=== PATIENT | male | born 1935 | race Caucasian/White ===

== ENCOUNTER 2019-03-27 12:27 | Emergency (ER) | payer MEDICARE, SELFPAY ==
[2019-03-27 12:32] VITALS: BP 114/62; PULSE 70; RESP 18; TEMP 37.2; O2SAT 94; BMI 29.5
--- NOTE | 2019-03-27 12:42 | ED_ITS ---
Entered by Apryl Gutierrez, acting as scribe for HPI - SOB/Dyspnea General: Chief Complaint: Shortness of Breath/Dyspnea Stated Complaint: r knee pain, congestion Time Seen by Provider: 03/27/19 12:43 Source: patient and family Mode of arrival: ambulatory History of Present Illness: HPI Narrative: 83 yo male presents with shortness of breath. per spouse the pt is suppose to wear home O2 but chooses not to wear it.pt has had a cough. pt states movement and cough makes this worse and nothing makes it better. MD elicited complaint: shortness of breath and cough Onset (ago): day(s) Timing: progressively worsening (when not wearing home O2) Severity: moderate Exacerbating factors: other (not wearing his home oxygen) Relieving factors: oxygen Known history of: COPD and congestive heart failure Associated symptoms: Reports cough and other (R knee pain) Treatment prior to arrival: none PFSH ED PFSH: Statuses (acute, chronic, etc) shown below reflect problem list status as previously entered and may not be historically accurate Medical History (Updated 03/27/19 @ 14:05 by Shanon Pascual) Arrhythmia (Acute) Atrial fibrillation (Acute) CHF (congestive heart failure) (Acute) Cholecystectomy planned (Acute) COPD (chronic obstructive pulmonary disease) (Acute) CVA (cerebral vascular accident) (Acute) HTN (hypertension) (Acute) Surgical History (Updated 03/27/19 @ 13:16 by Apryl Gutierrez) History of cholecystectomy (Acute) Social History Smoking and tobacco status: former smoker Course Vital Signs: Vital signs: Vital Signs Temperature 98.9 F 03/27/19 12:32 Pulse Rate 70 03/27/19 13:48 Respiratory Rate 16 03/27/19 13:48 Blood Pressure 110/74 03/27/19 13:13 Pulse Oximetry 96 03/27/19 13:48 MDM - SOB/Dyspnea MDM Narrative: Medical decision making narrative: The patient's wheezing has resolved with DuoNeb here. He has medications for home. I will place him on prednisone and doxycycline. He and his agree to return should his symptoms change or worsen but he is feeling better and would like to be discharged. Lab Data: Labs: Lab Results 03/27/19 03/27/19 03/27/19 Range/Units 13:13 13:13 13:13 WBC 5.7 (4.0-10.0) 10^3/ uL RBC 3.80 L (4.1-5.3) 10^6/u L Hgb 12.8 (11.7-16.6) g/dL Hct 39.9 L (42.0-52.0) % MCV 105.0 H (80-94) fL MCH 33.7 (28.0-34.0) pg MCHC 32.1 (30.0-36.0) g/dL RDW 12.8 (12.1-15.1) % Plt Count 178 (130-400) 10^3/c mm MPV 10.1 (7.4-10.4) fL Neut % (Auto) 60.9 % Lymph % (Auto) 22.6 % [place]clean % (Auto) 11.4 % Eos % (Auto) 4.2 % Baso % (Auto) 0.5 % Neut # (Auto) 3.5 (1.8-7.7) 10^3/u L Lymph # (Auto) 1.3 (0.8-4.8) 10^3/u L Mclean # (Auto) 0.7 (0.2-0.9) 10^3/u L Eos # (Auto) 0.2 (0.0-0.8) 10^3/u L Baso # (Auto) 0.0 (0.0-0.1) 10^3/u L Nucleated RBC % (a uto) 0 % Nucleated RBCs # 0.0 /100WBC Specimen Type Sample Site ABG pH (7.35-7.45) ABG pCO2 (35-45) mmHg ABG pO2 (80.0-100.0) mmH g ABG HCO3 (22-26) mmol/L ABG Base Excess (-2.0-2.0) mmol/ L Gian Test Hematocrit (42-52) % Hgb O2 Saturation (95-100) % O2 Liters/Min % FiO2 % Automotive Painter Helper ID Sodium 135 L (136-145) mmol/L Potassium 4.4 (3.5-5.1) mmol/L Chloride 96 L (98-107) mmol/L Carbon Dioxide 30 H (22-29) mmol/L Anion Gap 13.4 (5-19) BUN 11 (8-23) mg/dL Creatinine 1.1 (0.7-1.2) mg/dL Glucose 121 H (74-106) mg/dL Calcium 9.8 (8.8-10.2) mg/Dl Total Bilirubin 1.2 (0.15-1.2) mg/dL ALT 13 (0-41) U/L Alkaline Phosphata se 103 (40-130) IU/L Total Protein 6.8 (6.6-8.7) g/dL Albumin 4.4 (3.5-5.2) g/dL Globulin 2.4 (1.3-4.6) g/dL Influenza Type A A g Negative (Negative) POC Influenza B Ag Negative (Negative) 03/27/19 Range/Units 13:30 WBC (4.0-10.0) 10^3/ uL RBC (4.1-5.3) 10^6/u L Hgb (11.7-16.6) g/dL Hct (42.0-52.0) % MCV (80-94) fL MCH (28.0-34.0) pg MCHC (30.0-36.0) g/dL RDW (12.1-15.1) % Plt Count (130-400) 10^3/c mm MPV (7.4-10.4) fL Neut % (Auto) % Lymph % (Auto) % Mclean % (Auto) % Eos % (Auto) % Baso % (Auto) % Neut # (Auto) (1.8-7.7) 10^3/u L Lymph # (Auto) (0.8-4.8) 10^3/u L Mclean # (Auto) (0.2-0.9) 10^3/u L Eos # (Auto) (0.0-0.8) 10^3/u L Baso # (Auto) (0.0-0.1) 10^3/u L Nucleated RBC % (a uto) % Nucleated RBCs # /100WBC Specimen Type Arterial Sample Site Radial, right ABG pH 7.36 (7.35-7.45) ABG pCO2 53.8 H (35-45) mmHg ABG pO2 92.2 (80.0-100.0) mmH g ABG HCO3 30.0 H (22-26) mmol/L ABG Base Excess 3.3 H (-2.0-2.0) mmol/ L Gian Test Pos Hematocrit 38.8 L (42-52) % Hgb O2 Saturation 95.2 (95-100) % O2 Liters/Min 2.0 % FiO2 28.0 % Automotive Painter Helper ID amh Sodium (136-145) mmol/L Potassium (3.5-5.1) mmol/L Chloride (98-107) mmol/L Carbon Dioxide (22-29) mmol/L Anion Gap (5-19) BUN (8-23) mg/dL Creatinine (0.7-1.2) mg/dL Glucose (74-106) mg/dL Calcium (8.8-10.2) mg/Dl Total Bilirubin (0.15-1.2) mg/dL ALT (0-41) U/L Alkaline Phosphata se (40-130) IU/L Total Protein (6.6-8.7) g/dL Albumin (3.5-5.2) g/dL Globulin (1.3-4.6) g/dL Influenza Type A A g (Negative) POC Influenza B Ag (Negative) Imaging Data^: CXR: My impression: No acute cardiopulmonary findings. Discharge Plan Discharge Patient Disposition: Home, Self-Care Clinical Impression: Acute exacerbation of chronic obstructive airways disease Condition: Stable Prescriptions: New albuterol sulfate 90 mcg/actuation HFA aerosol inhaler 2 inh INHALATION Q6H PRN (Reason: shortness of breath or wheezing) Qty: 6.7 RF: 0 doxycycline hyclate 100 mg capsule 100 mg PO BID 10 Days Qty: 20 RF: 0 prednisone 10 mg tablet 20 mg PO BID 5 Days Qty: 20 RF: 0 No Action Pending RF: 0 Discharge Orders: Discharge Order (Routine); Ordered 03/27/19 Ordered By: Shanon Pascual Referrals: Chencho Howell MD [Family Provider] - Discharge Diet: Usual diet Discharge Activity: Increase activity as tolerated Patient Instructions: Chronic Obstructive Pulmonary Disease (ED) Activity Restrictions/Additional Instructions: Please return to the ER immediately for any of the signs or symptoms listed on your discharge instruction sheets, worsening/changing of your symptoms, you are not getting better as quickly as expected, or for ANY other cause or concerns. Coding Level of Care Code ED Sales Administration Manager for Chg Fwd The documentation recorded by the scribe, Gutierrez,Apryl Kiara, accurately reflects the service I personally performed and the decisions made by me, Shanon Pascual Mar 27, 2019 12:27
--- NOTE | 2019-03-27 12:44 | XRR_ITS ---
PROCEDURE INFORMATION: Exam: XR Left Foot Complete Exam date and time: 03/27/2019 12:50 PM Age: 83 years old Clinical indication: Patient HX: Possible gout/ C/O pain left foot for awhile. Swelling TECHNIQUE: Imaging protocol: XR Left foot. Views: 3 or more views. COMPARISON: No relevant prior studies available. FINDINGS: Bones/joints: There are mild degenerative changes scattered throughout the metatarsal phalangeal and interphalangeal joints. Scattered subchondral lucencies are scattered throughout the metatarsophalangeal and interphalangeal joints. Questionable erosive change is noted along the medial aspect of the 1st metatarsal head and along the lateral aspect of the 5th proximal phalanx. Small enthesophyte projects along the base of the 5th metatarsal. There is no evidence of acute displaced fracture. There are degenerative changes at the tibiotalar joint. Calcaneal enthesophytes are noted at the plantar and Achilles insertion points. Soft tissues: Unremarkable for technique. Vasculature: Atherosclerotic calcifications are noted. XR/XR foot LT min 3V* [id number] IMPRESSION: 1. Scattered degenerative change with questionable early erosive change along the 1st metatarsal head and distal aspect of the 5th proximal phalanx. Although nonspecific, findings can be associated with inflammatory arthropathies to include gout.
--- NOTE | 2019-03-27 12:44 | XRR_ITS ---
PROCEDURE INFORMATION: Exam: XR Right Knee Exam date and time: 03/27/2019 12:50 PM Age: 83 years old Clinical indication: Patient HX: C/O pain right knee for awhile TECHNIQUE: Imaging protocol: XR Right knee. Views: 3 views. COMPARISON: No relevant prior studies available. FINDINGS: Bones/joints: There is mild narrowing of the medial compartment. Small tricompartmental osteophytes are noted. There is no evidence of acute displaced fracture. Small patellar enthesophytes at the quadriceps and patellar tendon insertions are noted. There is a small knee joint effusion. Soft tissues: There is mild prepatellar soft tissue swelling. Vasculature: Vascular calcifications are noted. XR/XR knee RT 3V* [id number] IMPRESSION: 1. Mild tricompartmental degenerative change. 2. Mild prepatellar soft tissue swelling, which is of uncertain clinical significance and can be seen with prepatellar bursitis or contusion. 3. Small knee joint effusion.
[2019-03-27 12:52] VITALS: BP 133/70; PULSE 72; RESP 16; O2SAT 95; O2SAT 96
[2019-03-27 13:13] VITALS: BP 110/74; PULSE 80; RESP 16; O2SAT 95
[2019-03-27] MEDS: ipratropium-albuterol 3 mL Neb 9 ML INHALATION (13:21)
--- NOTE | 2019-03-27 13:22 | PC.NURSE ---
Xray performed at bedside. RT at bedside
[2019-03-27 13:23] VITALS: PULSE 76; RESP 16; O2SAT 96
--- NOTE | 2019-03-27 13:29 | XRR_ITS ---
PROCEDURE INFORMATION: Exam: XR Chest, 1 View Exam date and time: 03/27/2019 1:51 PM Age: 83 years old Clinical indication: Cough and other: Congestion; Prior surgery; Surgery date: 6+ months; Surgery type: Pacemaker TECHNIQUE: Imaging protocol: XR of the chest Views: 1 view. COMPARISON: CR Chest 2 views* [id number] 02/11/2019 9:52 AM FINDINGS: Tubes, catheters and devices: Dual lead right chest cardiac device is in place. The battery pack is more vertically oriented and there is slight variation of the battery pack itself suggesting interval removal and replacement. Both leads appear in unchanged position. Lungs: Unchanged calcified granuloma within the lateral left mid lung. There is no focal consolidation. Pleural space: No pleural effusion. No pneumothorax. Heart/Mediastinum: The heart remains enlarged and unchanged. Diaphragm: There is mild unchanged elevation of the right hemidiaphragm. Vasculature: Atherosclerotic calcifications are noted within the aortic arch. Bones/joints: There are degenerative changes of the spine and bilateral shoulders. XR/XR chest 1V portable [id number] IMPRESSION: 1. No acute cardiopulmonary process identified.
[2019-03-27 13:32] LABS: Basophils % 0.5 %; Eosinophils # 0.2 10^3/uL (0.0-0.8); Eosinophils % 4.2 %; Hematocrit 39.9 % (42.0-52.0); Hemoglobin 12.8 g/dL (11.7-16.6); Lymphocytes # 1.3 10^3/uL (0.8-4.8); Lymphocytes % 22.6 %; Mean Corpuscular HGB Conc 32.1 g/dL (30.0-36.0); Mean Corpuscular Hemoglobin 33.7 pg (28.0-34.0); Mean Platelet Volume 10.1 fL (7.4-10.4); Monocytes # 0.7 10^3/uL (0.2-0.9); Monocytes % 11.4 %; Neutrophils # 3.5 10^3/uL (1.8-7.7); Neutrophils % 60.9 %; Nucleated Red Blood Cells % 0 %; Platelet Count 178 10^3/cmm (130-400); Red Cell Distribution Width 12.8 % (12.1-15.1); White Blood Count 5.7 10^3/uL (4.0-10.0)
[2019-03-27 13:42] LABS: ABG PCO2 53.8 mmHg (35-45); ABG PH Result 7.36 (7.35-7.45); Arterial Blood Gas Hematocrit 38.8 % (42-52); Base Excess ABG 3.3 mmol/L (-2.0-2.0); Blood Gas Allen Test Pos; Blood Gas Operator Identificat amh; Blood Gas Sample Site Radial, right; Blood Gas Sample Type Arterial; HGB O2 Sat 95.2 % (95-100); PO2 ABG 92.2 mmHg (80.0-100.0)
[2019-03-27 13:48] VITALS: PULSE 70; RESP 16; O2SAT 96
[2019-03-27 13:58] LABS: Alanine Aminotransferase 13 U/L (0-41); Albumin Level 4.4 g/dL (3.5-5.2); Alkaline Phosphatase 103 IU/L (40-130); Anion Gap 13.4 (5-19); Blood Urea Nitrogen 11 mg/dL (8-23); Calcium 9.8 mg/Dl (8.8-10.2); Carbon Dioxide 30 mmol/L (22-29); Chloride 96 mmol/L (98-107); Globulin 2.4 g/dL (1.3-4.6); Glucose 121 mg/dL (74-106); Potassium 4.4 mmol/L (3.5-5.1); Sodium 135 mmol/L (136-145); Total Bilirubin 1.2 mg/dL (0.15-1.2); Total Protein 6.8 g/dL (6.6-8.7)
[2019-03-27 13:59] LABS: Influenza A by IFA Negative (Negative); Influenza B by IFA Negative (Negative)
[2019-03-27 14:16] VITALS: BP 125/57; PULSE 70; RESP 18; O2SAT 96
[2019-03-27 14:21] LABS: Aspartate Amino Transferase 31 U/L (0-40)
[2019-03-27] MEDS: predniSONE 20 mg Tablet 60 MG PO (14:22)
[2019-03-27] MEDS: doxycycline 100 mg Tablet 200 MG PO (14:22)
[2019-03-30 12:35] LABS: Carboxyhemoglobin 1.9 %THgb (0.4-20.1); Methemoglobin 0.7 % (0.4-1.5); Total Hemoglobin 12.7 g/dL (14-18)
[2019-03-31 08:36] LABS: Oxygen Device NC
== END 2019-03-27 14:25 | disposition home or self-care (01) ==
PROVIDERS: Emergency Provider Emergency Medicine; Family Provider Family Medicine
DX: J44.1 Chronic obstructive pulmonary disease with (acute) exacerbation (principal); Z87.891 Personal history of nicotine dependence; I48.91 Unspecified atrial fibrillation; I11.0 Hypertensive heart disease with heart failure; I50.9 Heart failure, unspecified; Z86.73 Personal history of transient ischemic attack (TIA), and cerebral infarction without residual deficits
CPT/HCPCS: 36415; 36600; 71045; 73562; 73630; 80053; 82805; 85025; 87040; 87804; 99282; J7512

== ENCOUNTER 2019-05-28 22:18 | Emergency (ER) | payer MEDICARE, SELFPAY ==
[2019-05-28 22:21] VITALS: BP 152/77; PULSE 75; RESP 20; TEMP 36.9; O2SAT 97; BMI 28.8
--- NOTE | 2019-05-28 22:24 | ED_ITS ---
Entered by Prisca Josue, acting as scribe for Ganga Vargas DO HPI - General Adult General: Chief complaint: General Medical Stated complaint: congestion, abd pain, blake Time Seen by Provider: 05/28/19 22:24 Source: patient, EMS and RN notes reviewed Mode of arrival: EMS Limitations: no limitations History of Present Illness: HPI narrative: 83 yo male presents to ED with complaints of abdominal pain, nausea, body aches (knees, elbows), congestion, chills (no fever) and a headache. The patient states I don't feel good . He denies vomiting and diarrhea. He said he simply can't think - my mind is a stinking blank . The patient denies difficulty breathing. MD complaint: abdominal pain, congestion, headache Onset (ago): hour(s) (today) Location: head, chest and abdomen Radiation: non-radiation Severity: moderate Quality: aching Pain Consistency: constant Relieving factors: none Exacerbating factors: none Associated symptoms: Reports chest pain, confusion, fevers/chills, headache(s), malaise, nausea and other (constipation); Deny dyspnea, rash, palpitations or vomiting Treatments prior to arrival: none Review of Systems Const: Reports: malaise Eyes: Denies: blurry vision ENMT: Denies: throat pain, painful swallowing or dental pain Card: Reports: chest pain; Denies: palpitations, edema, shortness of breath on exertion or shortness of breath when lying down Resp: Denies: shortness of breath or wheezing GI: Reports: nausea; Denies: abdominal pain, vomiting or vomiting blood : Reports: difficulty starting urination and change in urine stream Skin/Breast: Denies: rash Neuro: Reports: headache and confusion [facility] ED PFSH: Social History Smoking and tobacco status: former smoker Physical Exam Const: GENERAL APPEARANCE: well developed ORIENTATION/CONSCIOUSNESS: Yes oriented to person, Yes oriented to place and Yes oriented to time HENMT: COMMON NORMALS: normocephalic, external ears normal, external nose normal and moist oral mucous membranes (slightly dry) HEAD & SCALP: normocephalic; no scalp tenderness FACE & SINUS: normal facial exam NOSE: external nose normal and no nasal discharge EXTERNAL EAR: Yes external ears normal MOUTH: tongue normal TEETH & GINGIVA: no abnormal tooth and associated gingiva THROAT: posterior oropharynx normal; no peritonsillar mass Eye: COMMON NORMALS: PERRL, EOMs intact bilaterally and conjunctivae normal EYELID: eyelids normal CONJUNCTIVA: Yes conjunctivae normal PUPIL: Yes PERRL Neck/C-Spine: GENERAL: No tracheal deviation Chest: COMMONS NORMALS: inspection of chest normal CHEST: No tenderness Resp: COMMON NORMALS: clear to auscultation bilaterally EFFORT & INSPECTION: No tachypneic, No respiratory distress, No retractions, No uses accessory muscles and No tracheal deviation AUSCULTATION: clear to auscultation bilaterally, no rhonchi, no wheezes and lung sounds not diminished Cardio: COMMON NORMALS: regular rate and regular rhythm RATE: regular rate RHYTHM: regular rhythm HEART SOUNDS: no murmurs PERIPHERAL PULSES: radial pulses present GI: INSPECTION: No abdominal distension AUSCULTATION: No hyperactive bowel sounds and No hypoactive bowel sounds PALPATION: No guarding and No rigid PERCUSSION: no dullness to percussion and no tympanic to percussion Neuro: SENSORIUM/ORIENTATION: Yes oriented to person, Yes oriented to place and Yes oriented to time Psych: COMMON NORMALS: mental status grossly normal Skin: COMMON NORMALS: no rashes or lesions noted GENERAL SKIN EXAM: no rashes or lesions noted Course Vital Signs: Vital signs: Vital Signs Temperature 98.5 F 05/28/19 22:21 Pulse Rate 72 05/29/19 00:41 Respiratory Rate 15 05/29/19 00:41 Blood Pressure 131/66 05/29/19 00:41 Pulse Oximetry 95 05/29/19 00:41 MDM - General Adult [facility] Narrative: Medical decision making narrative: 83-year-old gentleman with epigastric discomfort, and nausea. He is not short of breath. Not overly having chest pain. His EKG is paced. His first troponin was minimally elevated. There is no fever, no leukocytosis, and his other laboratory is benign. GI cocktail resolved his symptoms. Patient was informed about his 2- hour troponin, but wished to go home with improvement in his symptoms. Lab Data: Labs: Lab Results 05/28/19 05/28/19 05/28/19 Range/Units 22:50 22:50 22:50 WBC 5.6 (4.0-10.0) 10^3/ uL RBC 4.15 (4.1-5.3) 10^6/u L Hgb 13.1 (11.7-16.6) g/dL Hct 41.0 L (42.0-52.0) % MCV 98.8 H (80-94) fL MCH 31.6 (28.0-34.0) pg MCHC 32.0 (30.0-36.0) g/dL RDW 12.3 (12.1-15.1) % Plt Count 150 (130-400) 10^3/c mm MPV 9.6 (7.4-10.4) fL Neut % (Auto) 54.6 % Lymph % (Auto) 26.7 % [place] % (Auto) 12.8 % Eos % (Auto) 5.0 % Baso % (Auto) 0.5 % Neut # (Auto) 3.0 (1.8-7.7) 10^3/u L Lymph # (Auto) 1.5 (0.8-4.8) 10^3/u L [place]verse # (Auto) 0.7 (0.2-0.9) 10^3/u L Eos # (Auto) 0.3 (0.0-0.8) 10^3/u L Baso # (Auto) 0.0 (0.0-0.1) 10^3/u L Nucleated RBC % (a uto) 0 % Nucleated RBCs # 0.0 /100WBC Sodium 135 L (136-145) mmol/L Potassium 4.3 (3.5-5.1) mmol/L Chloride 98 (98-107) mmol/L Carbon Dioxide 26 (22-29) mmol/L Anion Gap 15.3 (5-19) BUN 10 (8-23) mg/dL Creatinine 1.1 (0.7-1.2) mg/dL Glucose 131 H (65-115) mg/dL Calcium 9.9 (8.5-10.5) mg/dL Total Bilirubin 0.8 (0.15-1.2) mg/dL AST 28 (0-40) U/L ALT 13 (0-41) U/L Alkaline Phosphata se 88 (40-130) IU/L Creatine Kinase 58 (39-308) U/L Troponin T Baselin e 22 H (0-15) ng/mL C-Reactive Protein 5.2 H (0.0-4.9) mg/L Total Protein 7.3 (6.6-8.7) g/dL Albumin 3.9 (3.5-5.2) g/dL Globulin 3.4 (1.3-4.6) g/dL Urine Color (Yellow) Urine Appearance (CLEAR) Urine pH (5-7) Ur Specific Gravit y (1.005-1.030) Urine Protein (Negative) Urine Glucose (UA) (Normal) Urine Ketones (Negative) Urine Blood (Negative) Urine Nitrate (Negative) Urine Bilirubin (NEGATIVE) Urine Urobilinogen (Negative) mg/dL Ur Leukocyte Anitra ase (Negative) Urine RBC (0-2) /hpf Urine WBC (0-5) /hpf Ur Squamous Epith Cells (0-5) Urine Bacteria (NONE) Influenza Type A A g (Negative) POC Influenza B Ag (Negative) 05/28/19 05/29/19 Range/Units 22:59 00:06 WBC (4.0-10.0) 10^3/ uL RBC (4.1-5.3) 10^6/u L Hgb (11.7-16.6) g/dL Hct (42.0-52.0) % MCV (80-94) fL MCH (28.0-34.0) pg MCHC (30.0-36.0) g/dL RDW (12.1-15.1) % Plt Count (130-400) 10^3/c mm MPV (7.4-10.4) fL Neut % (Auto) % Lymph % (Auto) % [place]verse % (Auto) % Eos % (Auto) % Baso % (Auto) % Neut # (Auto) (1.8-7.7) 10^3/u L Lymph # (Auto) (0.8-4.8) 10^3/u L Traverse # (Auto) (0.2-0.9) 10^3/u L Eos # (Auto) (0.0-0.8) 10^3/u L Baso # (Auto) (0.0-0.1) 10^3/u L Nucleated RBC % (a uto) % Nucleated RBCs # /100WBC Sodium (136-145) mmol/L Potassium (3.5-5.1) mmol/L Chloride (98-107) mmol/L Carbon Dioxide (22-29) mmol/L Anion Gap (5-19) BUN (8-23) mg/dL Creatinine (0.7-1.2) mg/dL Glucose (65-115) mg/dL Calcium (8.5-10.5) mg/dL Total Bilirubin (0.15-1.2) mg/dL AST (0-40) U/L ALT (0-41) U/L Alkaline Phosphata se (40-130) IU/L Creatine Kinase (39-308) U/L Troponin T Baselin e (0-15) ng/mL C-Reactive Protein (0.0-4.9) mg/L Total Protein (6.6-8.7) g/dL Albumin (3.5-5.2) g/dL Globulin (1.3-4.6) g/dL Urine Color Yellow (Yellow) Urine Appearance Clear (CLEAR) Urine pH 5 (5-7) Ur Specific Gravit y 1.025 (1.005-1.030) Urine Protein Neg (Negative) Urine Glucose (UA) Norm (Normal) Urine Ketones Negative (Negative) Urine Blood 3+ H (Negative) Urine Nitrate Negative (Negative) Urine Bilirubin Neg (NEGATIVE) Urine Urobilinogen Norm (Negative) mg/dL Ur Leukocyte Anitra ase Negative (Negative) Urine RBC 0-4 H (0-2) /hpf Urine WBC Rare (0-5) /hpf Ur Squamous Epith Cells Rare (0-5) Urine Bacteria Trace (NONE) Influenza Type A A g Negative (Negative) POC Influenza B Ag Negative (Negative) Discharge Plan Discharge Patient Disposition: Home, Self-Care Clinical Impression: GERD with esophagitis Condition: Stable Prescriptions: New Zofran 4 mg tablet 4 mg PO Q6H Qty: 12 RF: 0 No Action Xarelto 20 mg tablet 20 mg PO DAILY Qty: 90 RF: 3 albuterol sulfate 90 mcg/actuation HFA aerosol inhaler 2 inh INHALATION Q6H PRN (Reason: shortness of breath or wheezing) Qty: 6.7 RF: 0 Xanax 0.5 mg Tablet See Rx Instructions .ROUTE .COMPLEX RF: 0 Narcan 4 mg/actuation [place],Non-Aerosol See Rx Instructions .ROUTE .COMPLEX RF: 0 carvedilol 25 mg Tablet 25 mg PO BID RF: 0 oxycodone 15 mg tablet 30 mg PO QID MDD 7 TABS PRNRF: 0 Discharge Orders: Discharge Order (Routine); Ordered 05/29/19 Ordered By: Ganga Vargas Referrals: Chencho Howell MD [Primary Care Provider] - Discharge Diet: Advance as tolerated Discharge Activity: Increase activity as tolerated Patient Instructions: Gastroesophageal Reflux Disease (ED) Activity Restrictions/Additional Instructions: Return for worsening discomfort, vomiting, fever, shortness of breath, other concerning symptoms. Discharge Date/Time: 05/29/19 00:41 Coding Level of Care Code ED Manager Animation for Chg Fwd Exam Comprehensive The documentation recorded by the Joselo suarez Valerie R, accurately reflects the service I personally performed and the decisions made by Sam ingram Jeremy John, DO May 28, 2019 22:18
[2019-05-28 22:36] VITALS: O2SAT 98
--- NOTE | 2019-05-28 22:38 | XR_ITS ---
WS: [id number] XR chest 1V portable [id number] REASON FOR EXAM: cp FINDINGS: Cardiomegaly with arteriosclerotic changes. A dual electrode pacemaker is seen extends from the right side. The lung ferrer are well aerated. No pulmonary edema, pneumonia, pleural effusion, pneumothorax, or m ass effect. The hilum is and apices are normal. No osseous abnormalities. In the left lower lung is a granuloma. XR/XR chest 1V portable [id number] IMPRESSION: Arteriosclerotic heart disease. Dual electrode pacemaker.
--- NOTE | 2019-05-28 22:39 | ECG_ITS ---
Measurements Intervals [place] Rate: 71 P: IA: 0 QRS: -72 QRSD: 214 T: 102 QT: 480 QTc: 523 ELECTRONIC VENTRICULAR PACEMAKER ABNORMAL RHYTHM ECG Compared to ECG 12/06/2018 21:59:31 No significant changes Electronically Signed On 05-29-2019 19:03:36 TURBINE ASSEMBLER by Carol Vee M.D. [email or web address]
[2019-05-28] MEDS: lidocaine 2% viscous 15 ML, aluminum-mag hydrox-simethicon 30 ML, sucralfate oral liq 1 GM PO (22:51)
[2019-05-28] MEDS: ondansetron 2 mg/ML SDV 2 mL 4 MG IVP (22:52)
[2019-05-28] MEDS: fentaNYL 50 mcg/mL INJ 2mL IVP (22:52)
[2019-05-28] MEDS: sodium chloride 0.9% 1,000 ML 999 ML IV (22:52)
[2019-05-28 23:03] LABS: Basophils % 0.5 %; Eosinophils # 0.3 10^3/uL (0.0-0.8); Hemoglobin 13.1 g/dL (11.7-16.6); Lymphocytes # 1.5 10^3/uL (0.8-4.8); Lymphocytes % 26.7 %; Mean Corpuscular Hemoglobin 31.6 pg (28.0-34.0); Mean Corpuscular Volume 98.8 fL (80-94); Mean Platelet Volume 9.6 fL (7.4-10.4); Monocytes # 0.7 10^3/uL (0.2-0.9); Monocytes % 12.8 %; Neutrophils % 54.6 %; Nucleated Red Blood Cells % 0 %; Platelet Count 150 10^3/cmm (130-400); Red Blood Count 4.15 10^6/uL (4.1-5.3); Red Cell Distribution Width 12.3 % (12.1-15.1); White Blood Count 5.6 10^3/uL (4.0-10.0)
--- NOTE | 2019-05-28 23:07 | PC.NURSE ---
portable chest xray at bedside
[2019-05-28 23:18] LABS: Alanine Aminotransferase 13 U/L (0-41); Albumin Level 3.9 g/dL (3.5-5.2); Alkaline Phosphatase 88 IU/L (40-130); Anion Gap 15.3 (5-19); Aspartate Amino Transferase 28 U/L (0-40); Blood Urea Nitrogen 10 mg/dL (8-23); C Reactive Protein 5.2 mg/L (0.0-4.9); Calcium 9.9 mg/dL (8.5-10.5); Carbon Dioxide 26 mmol/L (22-29); Chloride 98 mmol/L (98-107); Creatine Phosphokinase 58 U/L (39-308); Globulin 3.4 g/dL (1.3-4.6); Glucose 131 mg/dL (65-115); Potassium 4.3 mmol/L (3.5-5.1); Sodium 135 mmol/L (136-145); Total Bilirubin 0.8 mg/dL (0.15-1.2); Total Protein 7.3 g/dL (6.6-8.7)
[2019-05-28 23:25] LABS: Influenza A by IFA Negative (Negative); Influenza B by IFA Negative (Negative)
[2019-05-28 23:39] LABS: Troponin(5th) Baseline 22 ng/mL (0-15)
[2019-05-28 23:40] VITALS: BP 126/65; PULSE 71; RESP 14; O2SAT 98
[2019-05-29 00:37] LABS: Add Urine Microscopic? YES; Bilirubin Urine Neg (NEGATIVE); Blood Urine 3+ (Negative); Glucose Urine UA Norm (Normal); Ketones Urine Negative (Negative); Leukocyte Esterase Urine Negative (Negative); Nitrate Urine Negative (Negative); Protein Urine Neg (Negative); RBC Urine 0-4 /hpf (0-2); Specific Gravity, Urine 1.025 (1.005-1.030); Urine Appearance Clear (CLEAR); Urine Color Yellow (Yellow); Urobilinogen Urine Norm (Negative); pH Urine 5 (5-7)
[2019-05-29 00:38] LABS: Bacteria Urine TRACE; Squamous Epithelial Cell Urine RARE (0-5); WBC Urine RARE /hpf (0-5)
[2019-05-29 00:41] VITALS: BP 131/66; PULSE 72; RESP 15; O2SAT 95
== END 2019-05-29 00:41 | disposition home or self-care (01) ==
PROVIDERS: Emergency Provider Emergency Medicine; Family Provider Family Medicine; PCP Family Medicine
DX: K21.0 Gastro-esophageal reflux disease with esophagitis (principal); Z87.891 Personal history of nicotine dependence; I25.10 Atherosclerotic heart disease of native coronary artery without angina pectoris; Z95.0 Presence of cardiac pacemaker
CPT/HCPCS: 12345; 71045; 80053; 81001; 82550; 84484; 85025; 86140; 87040; 87804; 93005; 96360; 96361; 96374; 96375; 99284; J2405; J3010; J7030

== ENCOUNTER 2019-08-23 11:30 | Emergency (ER) | payer MEDICARE, SELFPAY ==
[2019-08-23 11:32] VITALS: BP 147/69; PULSE 74; RESP 12; TEMP 36.9; O2SAT 94; BMI 28.2
--- NOTE | 2019-08-23 11:35 | XR_ITS ---
WS: [id number] XR chest 1V portable [id number] REASON FOR EXAM: cp FINDINGS: Borderline cardiomegaly is noted. Stenting from the right upper chest is a dual electrode p acemaker in good position. The lung ferrer are well aerated. No pneumonia, pleural effusion, pulmonary edema, or mass effect. No pneumothorax. XR/XR chest 1V portable [id number] IMPRESSION: Borderline cardiomegaly with arteriosclerotic changes. Dual electrode pacemaker.
--- NOTE | 2019-08-23 11:35 | CT_ITS ---
WS: [id number] CT head wo con* [id number] REASON FOR EXAM: ams IV CONTRAST ADMINISTERED: None. TOTAL EXAM DLP: 729.[address] scans at [facility] use at least one of these dose optimization techniques: automat ed exposure control; mA and/or kV adjustment per patient size (includes targeted exams where dose is matched to clinical indication); or iterative reconstruction. FINDINGS: Ventriculomegaly changes are noted with effacement of the sulci throughout the brain. There is again noted a right cerebella hypodensity consistent with a lacunar infarction. In the paraventri cular areas are scattered hypointensities suggesting small vessel ischemic changes. The carotid arter ies show heavy arteriosclerotic changes. The skeletal system shows normal calvarium. The paranasal sinuses were normal. The mastoid air cells were all normal. The orbits optic nerves optive chiasma's are all normal. 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 The findings are similar to May 09, 2018.
--- NOTE | 2019-08-23 11:36 | ECG_ITS ---
Measurements Intervals [facility] [place] Rate: 71 P: MO: 0 QRS: 95 QRSD: 181 T: -82 QT: 484 QTc: 528 UNCERTAIN IRREGULAR RHYTHM ELECTRONIC VENTRICULAR PACEMAKER -- CONTOUR ANALYSIS BASED ON INTRINSIC RHYTHM BORDERLINE RIGHT AXIS DEVIATION [QRS AXIS > 90] LEFT BUNDLE BRANCH BLOCK [120+ ms QRS DURATION, 80+ ms Q/S IN V1/V2, 85+ ms R IN I/aVL/V5/V6] Compared to ECG 05/28/2019 22:54:31 Left bundle-branch block now present Electronically Signed On 08-23-2019 17:04:13 CDT by Rui Voss M.D. [id number]
--- NOTE | 2019-08-23 11:40 | PC.NURSE ---
.04 mg of narcan given by ems off the truck second dose
[2019-08-23] MEDS: sodium chloride 0.9% 1,000 ML 999 ML IV (11:46)
[2019-08-23 11:51] LABS: Glucose Point of Care 133 mg/dL (70-110)
[2019-08-23 11:51] LABS: ABG PCO2 36.6 mmHg (35-45); Arterial Blood Gas Hematocrit 40.6 % (42-52); Base Excess ABG 4.9 mmol/L (-2.0-2.0); Blood Gas Allen Test Pos; Blood Gas Sample Site Radial, right; Blood Gas Sample Type Arterial; HCO3 ABG 28.2 mmol/L (22-26); Oxygen Device ROOM AIR; PO2 ABG 68.2 mmHg (80.0-100.0)
--- NOTE | 2019-08-23 11:51 | ED_ITS ---
HPI - Overdose General: Chief Complaint: Overdose Stated Complaint: AMS, ? OVERDOSE Time Seen by Provider: 08/23/19 11:32 Source: EMS Mode of arrival: EMS Limitations: altered mental status History of Present Illness: HPI Narrative: 83-year-old male who states was outside mowing and she found him laying next the motor not responding. She states that she believes he took an extra oxycodone today. When EMS arrived he was unresponsive they gave him Narcan he awoke was able to tell his name. Patient given another dose of Narcan here and did awaken more is able to tell me his name and date. He is generally weak is very diaphoretic. He is able to move his hands and feet bilaterally but has generalized weakness. He still is confused and is able to only tell me his name. Patient is on blood thinners. Review of Systems General: Reports: ROS unobtainable due to mental status [facility] ED PFSH: Medical History Anticoagulation adequate with anticoagulant therapy Xarelto Arrhythmia Atrial fibrillation Cardiomyopathy CHF (congestive heart failure) Cholecystectomy planned COPD (chronic obstructive pulmonary disease) CVA (cerebral vascular accident) Dyslipidemia HTN (hypertension) Memory loss Mild aortic stenosis Sick sinus syndrome Sleep apnea Surgical History History of cholecystectomy Status cardiac pacemaker Social History Smoking and tobacco status: former smoker Physical Exam Const: COMMON NORMALS: negative for patient oriented x3 EXAM LIMITATIONS: altered mental status and physical limitations HENMT: COMMON NORMALS: normocephalic and atraumatic HEAD & SCALP: normocephalic and atraumatic Eye: COMMON NORMALS: Equal, round and reactive pupils present and EOMs intact bilaterally PUPIL: Yes Equal, round and reactive pupils present Neck/C-Spine: COMMON NORMALS: full ROM and supple Chest: COMMONS NORMALS: normal inspection of the chest and normal palpation of entire chest wall Resp: COMMON NORMALS: normal respiratory effort, No retractions, No use of accessory muscles and clear to auscultation bilaterally AUSCULTATION: clear to auscultation bilaterally Cardio: COMMON NORMALS: regular rate, regular rhythm and No murmurs present (Cardio) RATE: regular rate RHYTHM: regular rhythm GI: COMMON NORMALS: Normal to inspection, nondistended, normoactive bowel sounds present, Soft to palpation, non-tender and no masses PALPATION: Yes Soft to palpation Extremity: COMMON NORMALS: normal to inspection and full ROM Neuro: COMMON NORMALS: moves all extremities; negative for patient oriented x3 Psych: COMMON NORMALS: mental status grossly normal, Normal thought process present and cooperative THOUGHT PROCESS: Normal thought process present Skin: COMMON NORMALS: no rashes or lesions noted and no wounds GENERAL SKIN EXAM: no rashes or lesions noted Course Vital Signs: Vital signs: Vital Signs Temperature 98.4 F 08/23/19 11:32 Pulse Rate 75 08/23/19 15:46 Respiratory Rate 20 H 08/23/19 15:46 Blood Pressure 163/97 08/23/19 15:46 Pulse Oximetry 95 08/23/19 15:46 MDM - Overdose MDM Narrative: Medical decision making narrative: Patient presents here with altered neural status likely due to an overdose on his oxycodone along with drinking alcohol and being overheated outside. Patient is now awake and alert and able answer all my questions appropriately. Patient was able to ambulate the halls. Observed him for hours. Patient is adamant about going home. I did offer him admission but he states he feels much improved. Informed if he has any altered mental status he is to return immediately. He is able to make appropriate decisions. Patient's is here and agrees with plan. Lab Data: Labs: Lab Results 08/23/19 08/23/19 08/23/19 Range/Units 11:40 11:50 11:50 WBC 7.5 (4.0-10.0) 10^3/ uL RBC 3.87 L (4.1-5.3) 10^6/u L Hgb 12.5 (11.7-16.6) g/dL Hct 39.6 L (42.0-52.0) % MCV 102.3 H (80-94) fL MCH 32.3 (28.0-34.0) pg MCHC 31.6 (30.0-36.0) g/dL RDW 12.6 (12.1-15.1) % Plt Count 167 (130-400) 10^3/c mm MPV 9.3 (7.4-10.4) fL Neut % (Auto) 70.8 % Lymph % (Auto) 17.4 % [place] % (Auto) 7.9 % Eos % (Auto) 2.9 % Baso % (Auto) 0.7 % Neut # (Auto) 5.3 (1.8-7.7) 10^3/u L Lymph # (Auto) 1.3 (0.8-4.8) 10^3/u L [place] # (Auto) 0.6 (0.2-0.9) 10^3/u L Eos # (Auto) 0.2 (0.0-0.8) 10^3/u L Baso # (Auto) 0.1 (0.0-0.1) 10^3/u L Nucleated RBC % (a uto) 0 % Nucleated RBCs # 0.0 /100WBC PT 32.40 H (10.5-13.3) SECO NDS INR 3.02 H (0.8-1.2) Specimen Type Arterial Sample Site Radial, right ABG pH 7.50 H (7.35-7.45) ABG pCO2 36.6 (35-45) mmHg ABG pO2 68.2 L (80.0-100.0) mmH g ABG HCO3 28.2 H (22-26) mmol/L ABG Base Excess 4.9 H (-2.0-2.0) mmol/ L Gian Test Pos Hematocrit 40.6 L (42-52) % O2 Delivery Device Room air FiO2 21.0 % Greens Picker ID cak Sodium (136-145) mmol/L Potassium (3.5-5.1) mmol/L Chloride (98-107) mmol/L Carbon Dioxide (22-29) mmol/L Anion Gap (5-19) BUN (8-23) mg/dL Creatinine (0.7-1.2) mg/dL Glucose (65-115) mg/dL POC Glucose (70-110) mg/dL Calculated Osmolal ity (285-295) mOsm/k g Calcium (8.5-10.5) mg/dL Total Bilirubin (0.15-1.2) mg/dL AST (0-40) U/L ALT (0-41) U/L Alkaline Phosphata se (40-130) IU/L Creatine Kinase (39-308) U/L Troponin T Baselin e (0-15) ng/mL Troponin T 120 Min nez perce (0-15) ng/mL Delta Troponin T (0-10) ABS# Total Protein (6.6-8.7) g/dL Albumin (3.5-5.2) g/dL Globulin (1.3-4.6) g/dL TSH (0.27-4.20) uIU/ mL Ethyl Alcohol (0-10) mg/dL 08/23/19 08/23/19 08/23/19 Range/Units 11:50 11:50 11:50 WBC (4.0-10.0) 10^3/ uL RBC (4.1-5.3) 10^6/u L Hgb (11.7-16.6) g/dL Hct (42.0-52.0) % MCV (80-94) fL MCH (28.0-34.0) pg MCHC (30.0-36.0) g/dL RDW (12.1-15.1) % Plt Count (130-400) 10^3/c mm MPV (7.4-10.4) fL Neut % (Auto) % Lymph % (Auto) % [place] % (Auto) % Eos % (Auto) % Baso % (Auto) % Neut # (Auto) (1.8-7.7) 10^3/u L Lymph # (Auto) (0.8-4.8) 10^3/u L [place] # (Auto) (0.2-0.9) 10^3/u L Eos # (Auto) (0.0-0.8) 10^3/u L Baso # (Auto) (0.0-0.1) 10^3/u L Nucleated RBC % (a uto) % Nucleated RBCs # /100WBC PT (10.5-13.3) SECO NDS INR (0.8-1.2) Specimen Type Sample Site ABG pH (7.35-7.45) ABG pCO2 (35-45) mmHg ABG pO2 (80.0-100.0) mmH g ABG HCO3 (22-26) mmol/L ABG Base Excess (-2.0-2.0) mmol/ L Gian Test Hematocrit (42-52) % O2 Delivery Device FiO2 % Greens Picker ID Sodium 140 (136-145) mmol/L Potassium 4.8 (3.5-5.1) mmol/L Chloride 100 (98-107) mmol/L Carbon Dioxide 25 (22-29) mmol/L Anion Gap 19.8 H (5-19) BUN 10 (8-23) mg/dL Creatinine 1.1 (0.7-1.2) mg/dL Glucose 130 H (65-115) mg/dL POC Glucose 133 (70-110) mg/dL Calculated Osmolal ity 288 (285-295) mOsm/k g Calcium 9.7 (8.5-10.5) mg/dL Total Bilirubin 0.9 (0.15-1.2) mg/dL AST 30 (0-40) U/L ALT 13 (0-41) U/L Alkaline Phosphata se 102 (40-130) IU/L Creatine Kinase 81 (39-308) U/L Troponin T Baselin e 24 H (0-15) ng/mL Troponin T 120 Min nez perce (0-15) ng/mL Delta Troponin T (0-10) ABS# Total Protein 7.1 (6.6-8.7) g/dL Albumin 4.5 (3.5-5.2) g/dL Globulin 2.6 (1.3-4.6) g/dL TSH 2.46 (0.27-4.20) uIU/ mL Ethyl Alcohol (0-10) mg/dL 08/23/19 08/23/19 Range/Units 11:50 14:03 WBC (4.0-10.0) 10^3/ uL RBC (4.1-5.3) 10^6/u L Hgb (11.7-16.6) g/dL Hct (42.0-52.0) % MCV (80-94) fL MCH (28.0-34.0) pg MCHC (30.0-36.0) g/dL RDW (12.1-15.1) % Plt Count (130-400) 10^3/c mm MPV (7.4-10.4) fL Neut % (Auto) % Lymph % (Auto) % [place] % (Auto) % Eos % (Auto) % Baso % (Auto) % Neut # (Auto) (1.8-7.7) 10^3/u L Lymph # (Auto) (0.8-4.8) 10^3/u L [place] # (Auto) (0.2-0.9) 10^3/u L Eos # (Auto) (0.0-0.8) 10^3/u L Baso # (Auto) (0.0-0.1) 10^3/u L Nucleated RBC % (a uto) % Nucleated RBCs # /100WBC PT (10.5-13.3) SECO NDS INR (0.8-1.2) Specimen Type Sample Site ABG pH (7.35-7.45) ABG pCO2 (35-45) mmHg ABG pO2 (80.0-100.0) mmH g ABG HCO3 (22-26) mmol/L ABG Base Excess (-2.0-2.0) mmol/ L Gian Test Hematocrit (42-52) % O2 Delivery Device FiO2 % Greens Picker ID Sodium (136-145) mmol/L Potassium (3.5-5.1) mmol/L Chloride (98-107) mmol/L Carbon Dioxide (22-29) mmol/L Anion Gap (5-19) BUN (8-23) mg/dL Creatinine (0.7-1.2) mg/dL Glucose (65-115) mg/dL POC Glucose (70-110) mg/dL Calculated Osmolal ity (285-295) mOsm/k g Calcium (8.5-10.5) mg/dL Total Bilirubin (0.15-1.2) mg/dL AST (0-40) U/L ALT (0-41) U/L Alkaline Phosphata se (40-130) IU/L Creatine Kinase (39-308) U/L Troponin T Baselin e (0-15) ng/mL Troponin T 120 Min nez perce 21.03 H (0-15) ng/mL Delta Troponin T -2.97 L (0-10) ABS# Total Protein (6.6-8.7) g/dL Albumin (3.5-5.2) g/dL Globulin (1.3-4.6) g/dL TSH (0.27-4.20) uIU/ mL Ethyl Alcohol < 10 (0-10) mg/dL Imaging Data^: cta head/neck: Attestation: I personally reviewed and interpreted this imaging study as follow s: Radiologist's impression: [address] [place] [address] CT Scan Report Signed Patient: Chencho Velázquez Unit #: [id number] : 1935 Age/Sex: 83 / M ADM Date: 08/23/19 Loc: ER Room/Bed: Attending Dr: Ordering Provider/Ordering MD: Mona Crews MD Date of Service: 08/23/19 Procedure(s): CT angio headneck* [id number] Accession Number(s): [id number] Report Number: [id number] WS: [id number] CT angio headneck* [id number] REASON FOR EXAM: cva TECHNIQUE: Coronal and sagittal 2-D and MIP reformations. IV CONTRAST ADMINISTERED: Omnipaque 350 95 mL TOTAL EXAM DLP: 2647.[address] scans at [facility] use at least one of these dose optimization techniques: automated exposure control; mA and/or kV adjustment per patient size (includes targeted exams where dose is matched to clinical indication); or iterative reconstruction. FINDINGS: After the bolus injection of contrast the lower carotid system visualized well as well as the superior mediastinum. Small hypodensities are seen in the left lobe of the thyroid as well as an in adenoma of the isthmus of the thyroid. The left subclavian artery shows a plaque formation near the origin of. And there is heavy arteriosclerotic changes seen. Bilateral narrowing of the external carotids but no true stenosis is seen. The [place] fill readily with no definite obstructing lesion seen. The anterior middle and posterior cerebral arteries are well identified. The carotid arteries appear to be less than 50% stenosed as well as the external/internal carotids. 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 The [place] appeared to fill readily. Multiple cyst of the left lobe of the thyroid with an adenoma suspected in the isthmus. CT Head: Attestation: I personally reviewed and interpreted this imaging study as follows: Radiologist's impression: [place] [id number] CT Scan Report Signed Patient: Chencho Velázquez Unit #: [id number] : 1935 Age/Sex: 83 / M ADM Date: 08/23/19 Loc: ER Room/Bed: Attending Dr: Ordering Provider/Ordering MD: Mona Crews MD Date of Service: 08/23/19 Procedure(s): CT head wo con* [id number] Accession Number(s): [id number] Report Number: [id number] WS: [id number] CT head wo con* [id number] REASON FOR EXAM: ams IV CONTRAST ADMINISTERED: None. TOTAL EXAM DLP: 729.[address] scans at [facility] use at least one of these dose optimization techniques: automated exposure control; mA and/or kV adjustment per patient size (includes targeted exams where dose is matched to clinical indication); or iterative reconstruction. FINDINGS: Ventriculomegaly changes are noted with effacement of the sulci throughout the brain. There is again noted a right cerebella hypodensity consistent with a lacunar infarction. In the paraventricular areas are scattered hypointensities suggesting small vessel ischemic changes. The carotid arteries show heavy arteriosclerotic changes. The skeletal system shows normal calvarium. The paranasal sinuses were normal. The mastoid air cells were all normal. The orbits optic nerves optive chiasma's are all normal. CT/CT head wo con* 51530 IMPRESSION: Moderate cerebral atrophy Lacunar infarction involving the right cerebellar hemisphere [place] small vessel ischemic changes in the paraventricular area No acute hemorrhage, infarction, or mass effect. The findings are similar to May 09, 2018. CXR: Radiologist's impression: [address] [address] XRay Report Signed Patient: Chencho Velázquez Unit #: [id number] : 1935 Age/Sex: 83 / M ADM Date: 08/23/19 Loc: ER Room/Bed: Attending Dr: Ordering Provider/Ordering MD: Mona Crews MD Date of Service: 08/23/19 Procedure(s): XR chest 1V portable [id number] Accession Number(s): [id number] Report Number: [id number] WS: [id number] XR chest 1V portable [id number] REASON FOR EXAM: cp FINDINGS: Borderline cardiomegaly is noted. Stenting from the right upper chest is a dual electrode pacemaker in good position. The lung ferrer are well aerated. No pneumonia, pleural effusion, pulmonary edema, or mass effect. No pneumothorax. XR/XR chest 1V portable [id number] IMPRESSION: Borderline cardiomegaly with arteriosclerotic changes. Dual electrode pacemaker. EKG Data^: EKG 1: Attestation: I personally reviewed and interpreted this EKG as follows: EKG interpretation date: 08/23/19 EKG interpretation time: 12:01 Interpretation: paced rhythm hr [address] or t wave abnormalities qrs 181 qtc 507 EKG 2: Attestation: I personally reviewed and interpreted this EKG as follows: EKG interpretation date: 08/23/19 EKG interpretation time: 13:47 Interpretation: paced rhythma hr [address] or t wave abnormalities qrs 225 qtc 549 Discharge Plan Discharge Patient Disposition: Home, Self-Care Clinical Impression: Overdose Qualifiers: Encounter type: initial encounter Injury intent: accidental or unintentional Qualified Code(s): T50.901A - Poisoning by unspecified drugs, medicaments and biological substances, accidental (unintentional), initial encounter Condition: Stable Prescriptions: No Action Xarelto 20 mg tablet 20 mg PO DAILY Qty: 90 RF: 3 albuterol sulfate 90 mcg/actuation HFA aerosol inhaler 2 inh INHALATION Q6H PRN (Reason: shortness of breath or wheezing) Qty: 6.7 RF: 0 alprazolam [Xanax] 0.5 mg Tablet See Rx Instructions .ROUTE .COMPLEX RF: 0 Narcan 4 mg/actuation [place],Non-Aerosol See Rx Instructions .ROUTE .COMPLEX RF: 0 carvedilol 25 mg Tablet 25 mg PO BID RF: 0 oxycodone 15 mg tablet 30 mg PO QID MDD 7 TABS PRN (Reason: Pain) RF: 0 ondansetron HCl [Zofran] 4 mg tablet 4 mg PO Q6H Qty: 12 RF: 0 Flomax 0.4 mg Capsule 0.4 mg PO BID RF: 0 pantoprazole 40 mg Tablet,Delayed Release (Dr/Ec) 40 mg PO DAILY RF: 0 aspirin 81 mg Tablet,Chewable 81 mg PO DAILY RF: 0 montelukast 10 mg Tablet 10 mg PO DAILY RF: 0 finasteride 5 mg Tablet 5 mg PO DAILY RF: 0 Discharge Orders: Discharge Order (Routine); Ordered 08/23/19 Ordered By: Mona Crews Referrals: Chencho Howell MD [Primary Care Provider] - 1-3 days Discharge Diet: Advance as tolerated Discharge Activity: Resume usual activity Patient Instructions: Altered Mental Status (ED), Opioid Safety Discharge Date/Time: 08/23/19 15:46 Coding Level 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
[2019-08-23 11:54] VITALS: BP 147/69; PULSE 72; RESP 20; O2SAT 97
[2019-08-23 11:59] LABS: Basophils # 0.1 10^3/uL (0.0-0.1); Basophils % 0.7 %; Eosinophils # 0.2 10^3/uL (0.0-0.8); Eosinophils % 2.9 %; Hematocrit 39.6 % (42.0-52.0); Hemoglobin 12.5 g/dL (11.7-16.6); Lymphocytes # 1.3 10^3/uL (0.8-4.8); Lymphocytes % 17.4 %; Mean Corpuscular HGB Conc 31.6 g/dL (30.0-36.0); Mean Corpuscular Hemoglobin 32.3 pg (28.0-34.0); Mean Corpuscular Volume 102.3 fL (80-94); Mean Platelet Volume 9.3 fL (7.4-10.4); Monocytes # 0.6 10^3/uL (0.2-0.9); Monocytes % 7.9 %; Neutrophils # 5.3 10^3/uL (1.8-7.7); Neutrophils % 70.8 %; Nucleated Red Blood Cells % 0 %; Platelet Count 167 10^3/cmm (130-400); Red Blood Count 3.87 10^6/uL (4.1-5.3); Red Cell Distribution Width 12.6 % (12.1-15.1); White Blood Count 7.5 10^3/uL (4.0-10.0)
[2019-08-23 12:09] LABS: INR 3.02 (0.8-1.2)
[2019-08-23 12:13] LABS: Troponin(5th) Baseline 24 ng/mL (0-15)
[2019-08-23 12:23] LABS: Alanine Aminotransferase 13 U/L (0-41); Albumin Level 4.5 g/dL (3.5-5.2); Alkaline Phosphatase 102 IU/L (40-130); Anion Gap 19.8 (5-19); Aspartate Amino Transferase 30 U/L (0-40); Blood Urea Nitrogen 10 mg/dL (8-23); Calcium 9.7 mg/dL (8.5-10.5); Carbon Dioxide 25 mmol/L (22-29); Chloride 100 mmol/L (98-107); Creatine Phosphokinase 81 U/L (39-308); Globulin 2.6 g/dL (1.3-4.6); Glucose 130 mg/dL (65-115); Osmolality Calculated 288 mOsm/kg (285-295); Potassium 4.8 mmol/L (3.5-5.1); Sodium 140 mmol/L (136-145); Thyroid Stimulating Hormone 2.46 uIU/mL (0.27-4.20); Total Bilirubin 0.9 mg/dL (0.15-1.2); Total Protein 7.1 g/dL (6.6-8.7)
--- NOTE | 2019-08-23 12:25 | CT_ITS ---
WS: [id number] CT angio headneck* [id number] REASON FOR EXAM: cva TECHNIQUE: Coronal and sagittal 2-D and MIP reformations. IV CONTRAST ADMINISTERED: Omnipaque 350 95 mL TOTAL EXAM DLP: 2647.[address] scans at [facility] use at least one of these dose optimization techniques: automat ed exposure control; mA and/or kV adjustment per patient size (includes targeted exams where dose is matched to clinical indication); or iterative reconstruction. FINDINGS: After the bolus injection of contrast the lower carotid system visualized well as well as t he superior mediastinum. Small hypodensities are seen in the left lobe of the thyroid as well as an in adenoma of the isthmus of the thyroid. The left subclavian artery shows a plaque formation near the origin of. And there is heavy arterioscl erotic changes seen. Bilateral narrowing of the external carotids but no true stenosis is seen. The [place] fill readily with no definite obstructing lesion seen. The anterior middle and p osterior cerebral arteries are well identified. The carotid arteries appear to be less than 50% stenosed as well as the external/internal carotids. CT/CT angio headneck* [id number] IMPRESSION: Arteriosclerotic changes of the carotid system and the left subclavian artery w ith stenosis less than 50% 6 suspected. The [place] appeared to fill readily. Multiple cyst of the left lobe of the thyroid with an adenoma suspected in the isthmus.
[2019-08-23 13:18] LABS: Alcohol Level < 10 mg/dL (0-10)
[2019-08-23] MEDS: iohexol 350 mg/mL 100 mL Btl IV (13:19)
[2019-08-23 13:28] VITALS: BP 162/68; PULSE 72; RESP 30; O2SAT 96
[2019-08-23 14:29] LABS: Troponin 5 2HR 21.03 ng/mL (0-15)
[2019-08-23 14:40] LABS: Troponin 5 2HR Delta -2.97 ABS# (0-10)
[2019-08-23 14:56] VITALS: BP 142/77; PULSE 72; RESP 19; O2SAT 97
[2019-08-23 15:46] VITALS: BP 163/97; PULSE 75; RESP 20; O2SAT 95
--- NOTE | 2019-08-23 17:49 | ECG_ITS ---
Measurements Intervals [place] Rate: 70 P: DC: 0 QRS: -75 QRSD: 225 T: 100 QT: 529 QTc: 571 ELECTRONIC VENTRICULAR PACEMAKER ABNORMAL RHYTHM ECG Compared to ECG 05/28/2019 22:54:31 No significant changes Electronically Signed On 08-23-2019 17:08:06 CDT by Rui Voss M.D. [id number]
== END 2019-08-23 15:46 | disposition home or self-care (01) ==
PROVIDERS: Emergency Provider Emergency Medicine; Family Provider Family Medicine; PCP Family Medicine
DX: T65.91XA Toxic effect of unspecified substance, accidental (unintentional), initial encounter (principal); Z79.82 Long term (current) use of aspirin; I48.91 Unspecified atrial fibrillation; I11.0 Hypertensive heart disease with heart failure; I50.9 Heart failure, unspecified; J44.9 Chronic obstructive pulmonary disease, unspecified; Z86.73 Personal history of transient ischemic attack (TIA), and cerebral infarction without residual deficits; E78.5 Hyperlipidemia, unspecified; Z87.891 Personal history of nicotine dependence; Z95.0 Presence of cardiac pacemaker
CPT/HCPCS: 12345; 36415; 36416; 36600; 70450; 70496; 70498; 71045; 80053; 80307; 82550; 82803; 82962; 84443; 84484; 85025; 85610; 93005; 96360; 96361; 96374; 99283; 99284; J7030; Q9967

== ENCOUNTER 2020-02-02 16:17 | Emergency (ER) | payer MEDICARE, SELFPAY ==
[2020-02-02 16:19] VITALS: BP 94/55; PULSE 78; RESP 18; TEMP 36.5; O2SAT 95; BMI 27.1
--- NOTE | 2020-02-02 17:04 | ECG_ITS ---
[facility] Test Date: 2020-02-02 Pat Name: Chencho Velázquez Department: Room: Gender: Male [employer] Installer: : 1935 Requested By: Marciano Love Order Number: [id number] Rodriguez MD: Denver Markham M.D. Measurements Intervals [place] Rate: 70 P: SD: -1 QRS: -72 QRSD: 218 T: 101 QT: 487 QTc: 528 Interpretive Statements ELECTRONIC VENTRICULAR PACEMAKER Compared to ECG 08/23/2019 13:47:30 No significant changes Electronically Signed On 02-02-2020 17:24:17 CURTAIN INSPECTOR by Denver Markham M.D. [id number]
--- NOTE | 2020-02-02 17:04 | XR_ITS ---
WS: [id number] Portable AP upright chest, 02/02/2020 Clinical Data: sob Comparison: Portable chest, 08/23/2019. Findings: No nodules, masses or effusions are seen. The heart is enlarged. The pulmonary vascularity is not increased. No pneumonia or pneumothorax is seen. The permanent pacemaker remains in the same p osition with the generator in the right axilla. The aortic arch and descending aorta show calcificati on and tortuosity. XR/XR chest 1V portable [id number] Impression: Cardiomegaly and atherosclerosis.
--- NOTE | 2020-02-02 17:12 | ED_ITS ---
HPI - SOB/Dyspnea General: Chief Complaint: Shortness of Breath/Dyspnea Stated Complaint: EXTREME SOB, NAUSEA/VOMITING Time Seen by Provider: 02/02/20 17:07 History of Present Illness: HPI Narrative: Patient is a 84-year-old male comes to the ED for shortness of breath. Past medical history of pacemaker, hypertension, COPD, CHF, A. fib and dyslipidemia. Patient used to have oxygen at home, but currently does not have home O2 anymore. At [facility] today, his O2 saturations were in the 80s, so he put on his oxygen at 2 L and his O2 saturation went up to 95%. he was sent over here to the ED by [facility]. He says that over the past week he is having increased shortness of breath especially when up and ambulating. He was recently tested for Covid and it was negative. He has been dealing with chronic nausea and emesis that occurs in the morning for the past couple months. His PCP is trying different treatments for that but it has not improved. Patient says he does not monitor his weights daily. denies any fever, chills, chest pain, dysuria, abdominal pain or hematuria. Associated symptoms: Reports nausea (Chronic issue that occurs every morning for the past couple months) and vomiting (Chronic issue that occurs every morning for the past couple months); Deny abdominal pain, chest pain, fever(s), orthopnea or palpitations Review of Systems Const: Denies: fever(s), chills or fatigue Eyes: Denies: change in vision or eye discomfort ENMT: Denies: throat pain, odynophagia, nasal discharge or nasal congestion Card: Denies: chest pain, palpitations, edema, swelling of feet/ankles, dyspnea on exertion or orthopnea Resp: Reports: dyspnea; Denies: productive cough or non-productive cough GI: Reports: nausea (Chronic issue that occurs every morning for the past couple months) and vomiting (Chronic issue that occurs every morning for the past couple months); Denies: abdominal pain, diarrhea, constipation or hematochezia : Denies: flank pain, difficulty urinating, dysuria or hematuria Musc: Denies: neck pain, back pain or extremity swelling Skin/Breast: Denies: rash or new lesions Neuro: Denies: headache(s), numbness in extremities or weakness in extremities PFSH ED PFSH: Medical History Anticoagulation adequate with anticoagulant therapy Xarelto Arrhythmia Atrial fibrillation Cardiomyopathy CHF (congestive heart failure) Cholecystectomy planned COPD (chronic obstructive pulmonary disease) CVA (cerebral vascular accident) Dyslipidemia HTN (hypertension) Memory loss Mild aortic stenosis Sick sinus syndrome Sleep apnea Surgical History History of cholecystectomy Status cardiac pacemaker Social History Smoking and tobacco status: former smoker Physical Exam Narrative: EXAM NARRATIVE: Patient is a pleasant 84-year-old male that sitting comfortably on the exam bed and making jokes during history and exam. He does not appear in any acute distress. Const: COMMON NORMALS: no acute distress, patient oriented x3 and alert GENERAL APPEARANCE: cooperative and comfortable HENMT: COMMON NORMALS: normocephalic HEAD & SCALP: normocephalic MOUTH: Normal oral and palatal mucosa present THROAT: posterior oropharynx normal and uvula midline Neck/C-Spine: COMMON NORMALS: supple GENERAL: Yes normal visual inspection Resp: COMMON NORMALS: normal respiratory effort, No retractions, No use of accessory muscles and clear to auscultation bilaterally AUSCULTATION: clear to auscultation bilaterally Cardio: COMMON NORMALS: regular rate, regular rhythm, S1 normal heart sound present, S2 normal heart sound present, No gallops present (Cardio), No clicks present (Cardio), No murmurs present (Cardio) and Peripheral pulses 2+ throughout RATE: regular rate RHYTHM: regular rhythm HEART SOUNDS: S1 normal heart sound present and S2 normal heart sound present PERIPHERAL PULSES: Peripheral pulses 2+ throughout GI: COMMON NORMALS: Normal to inspection, nondistended, normoactive bowel sounds present, Soft to palpation, non-tender and no masses PALPATION: Yes Soft to palpation : COMMON NORMALS: Yes no CVA tenderness BLADDER/KIDNEY EXAM: Yes no CVA tenderness Back/Pelvis: COMMON NORMALS: no CVA tenderness Extremity: COMMON NORMALS: normal to inspection and no pedal edema Neuro: COMMON NORMALS: patient oriented x3 and moves all extremities SENSORIUM/ORIENTATION: Yes alert Skin: GENERAL SKIN EXAM: dry skin Course Consultations: Consultation #1: RT performed home O2 eval. Patient qualified for 2 L of oxygen at home to use when he sleeps and when he gets up and exerts himself. Vital Signs: Vital signs: Vital Signs Temperature 97.7 F 02/02/20 16:19 Pulse Rate 84 02/02/20 21:22 Respiratory Rate 18 02/02/20 21:22 Blood Pressure 132/87 02/02/20 21:22 Pulse Oximetry 96 02/02/20 21:22 MDM - SOB/Dyspnea MDM Narrative: Medical decision making narrative: Patient is an 84-year-old male comes to the ED with shortness of breath. He has a past medical history of COPD and heart failure with pacemaker. he used to be on oxygen at home but was doing well without it, so it was removed. Over the past week he has developed increased shortness of breath on exertion. Denies any fever, chills or any other upper respiratory symptoms. EKG showed no acute findings, chest x-ray no pneumonia or fluid on lungs. CBC and CMP were unremarkable. Troponin was 21- past troponin labs were 22 and 24. BNP 3740. Lactate 1.1. While here in the ED patient is on 2 L via nasal cannula and his O2 saturations 95%. Home O2 eval was performed and patient did qualify to be on home oxygen at 2 L to be used at night when sleeping and for exertion. Patient was discharged on home O2 and told to follow-up with PCP as directed. Return to ED precautions given. Patient understood and agreed with plan. Lab Data: Attestation: I reviewed the patient's lab results. Labs: Lab Results 02/02/20 02/02/20 02/02/20 Range/Units 17:25 17:25 17:25 WBC 5.1 (4.0-10.0) 10^3/ uL RBC 3.81 L (4.1-5.3) 10^6/u L Hgb 12.3 (11.7-16.6) g/dL Hct 40.0 L (42.0-52.0) % MCV 105.0 H (80-94) fL MCH 32.3 (28.0-34.0) pg MCHC 30.8 (30.0-36.0) g/dL RDW 12.4 (12.1-15.1) % Plt Count 147 (130-400) 10^3/c mm MPV 9.3 (7.4-10.4) fL Neut % (Auto) 59.1 % Lymph % (Auto) 26.3 % [place] % (Auto) 9.9 % Eos % (Auto) 3.9 % Baso % (Auto) 0.6 % Neut # (Auto) 3.03 (1.8-7.7) 10^3/u L Lymph # (Auto) 1.4 (0.8-4.8) 10^3/u L [place] # (Auto) 0.5 (0.2-0.9) 10^3/u L Eos # (Auto) 0.2 (0.0-0.8) 10^3/u L Baso # (Auto) 0.0 (0.0-0.1) 10^3/u L Nucleated RBC % (a uto) 0 % Nucleated RBCs # 0.0 /100WBC PT (12.1-14.9) SECO NDS INR (0.8-1.2) APTT (23.9-36.7) SECO NDS Sodium 140 (136-145) mmol/L Potassium 4.0 (3.5-5.1) mmol/L Chloride 100 (98-107) mmol/L Carbon Dioxide 27 (22-29) mmol/L Anion Gap 17.0 (5-19) BUN 8 (8-23) mg/dL Creatinine 1.0 (0.7-1.2) mg/dL GFR Calculation Not Reportable Glucose 109 (65-115) mg/dL Calculated Osmolal ity 289 (285-295) mOsm/k g Lactic Acid 1.1 (0.5-2.2) mmol/L Calcium 9.4 (8.5-10.5) mg/dL Total Bilirubin 0.8 (0.15-1.2) mg/dL AST 22 (0-40) U/L ALT 12 (0-41) U/L Alkaline Phosphata se 104 (40-130) IU/L Troponin T Baselin e (0-15) ng/L NT-Pro-B Natriuret Pep 3740 H (0-450) pg/mL Total Protein 7.0 (6.6-8.7) g/dL Albumin 4.4 (3.5-5.2) g/dL Globulin 2.6 (1.3-4.6) g/dL Lipase 7 L (13-60) U/L Procalcitonin 0.05 (0-0.5) ng/mL 02/02/20 02/02/20 Range/Units 17:25 17:25 WBC (4.0-10.0) 10^3/ uL RBC (4.1-5.3) 10^6/u L Hgb (11.7-16.6) g/dL Hct (42.0-52.0) % MCV (80-94) fL MCH (28.0-34.0) pg MCHC (30.0-36.0) g/dL RDW (12.1-15.1) % Plt Count (130-400) 10^3/c mm MPV (7.4-10.4) fL Neut % (Auto) % Lymph % (Auto) % [place] % (Auto) % Eos % (Auto) % Baso % (Auto) % Neut # (Auto) (1.8-7.7) 10^3/u L Lymph # (Auto) (0.8-4.8) 10^3/u L [place] # (Auto) (0.2-0.9) 10^3/u L Eos # (Auto) (0.0-0.8) 10^3/u L Baso # (Auto) (0.0-0.1) 10^3/u L Nucleated RBC % (a uto) % Nucleated RBCs # /100WBC PT 22.90 H (12.1-14.9) SECO NDS INR 1.95 H (0.8-1.2) APTT 37.7 H (23.9-36.7) SECO NDS Sodium (136-145) mmol/L Potassium (3.5-5.1) mmol/L Chloride (98-107) mmol/L Carbon Dioxide (22-29) mmol/L Anion Gap (5-19) BUN (8-23) mg/dL Creatinine (0.7-1.2) mg/dL GFR Calculation Glucose (65-115) mg/dL Calculated Osmolal ity (285-295) mOsm/k g Lactic Acid (0.5-2.2) mmol/L Calcium (8.5-10.5) mg/dL Total Bilirubin (0.15-1.2) mg/dL AST (0-40) U/L ALT (0-41) U/L Alkaline Phosphata se (40-130) IU/L Troponin T Baselin e 21 H (0-15) ng/L NT-Pro-B Natriuret Pep (0-450) pg/mL Total Protein (6.6-8.7) g/dL Albumin (3.5-5.2) g/dL Globulin (1.3-4.6) g/dL Lipase (13-60) U/L Procalcitonin (0-0.5) ng/mL Imaging Data^: CXR: Attestation: I personally reviewed and interpreted this imaging study as follows: My impression: Chest x-ray?cardiomegaly, but no other acute findings. EKG Data^: EKG 1: Attestation: I personally reviewed and interpreted this EKG as follows: EKG Interpretation Date: 02/02/20 Interpretation: Electronic ventricular pacemaker rhythm. 70 bpm, no ST segment elevation or depression seen. EKG 2: Attestation: I personally reviewed and interpreted this EKG as follows: EKG Interpretation Date: 02/02/20 Interpretation: Electronic ventricular pacemaker, [address] segment elevation depression. No acute change compared to previous EKG. Discharge Plan Discharge Patient Disposition: Home Clinical Impression: On home O2 CHF (congestive heart failure) Qualifiers: Heart failure type: systolic Heart failure chronicity: chronic Qualified Code(s): I50.22 - Chronic systolic (congestive) heart failure COPD (chronic obstructive pulmonary disease) Qualifiers: COPD type: unspecified COPD Qualified Code(s): J44.9 - Chronic obstructive pulmonary disease, unspecified Condition: Stable Prescriptions: No Action Xarelto 20 mg tablet 20 mg PO DAILY Qty: 90 RF: 3 carvedilol 25 mg tablet 25 mg PO BID Qty: 180 RF: 3 albuterol sulfate 90 mcg/actuation HFA aerosol inhaler 2 inh INHALATION Q6H PRN (Reason: shortness of breath or wheezing) Qty: 6.7 RF: 0 alprazolam [Xanax] 0.5 mg Tablet See Rx Instructions .ROUTE .COMPLEX RF: 0 Narcan 4 mg/actuation [place],Non-Aerosol See Rx Instructions .ROUTE .COMPLEX RF: 0 multivitamin Tablet 1 tab PO DAILY RF: 0 vitamin B complex Tablet 1 tab PO DAILY PRN (Reason: UNKNOWN) RF: 0 zinc 50 mg Tablet 50 mg PO PRN RF: 0 oxycodone 30 mg tablet 30 mg PO QID MDD 7 TABS PRN (Reason: Pain) RF: 0 Xtampza ER 27 mg cap,sprinkl,ER12hr(DONT CRUSH) 54 mg PO QAM RF: 0 Zofran 4 mg tablet 4 mg PO BID PRN (Reason: Nausea And Vomiting) RF: 0 tamsulosin [Flomax] 0.4 mg Capsule 0.4 mg PO BID RF: 0 pantoprazole 40 mg Tablet,Delayed Release (Dr/Ec) 40 mg PO BID RF: 0 montelukast 10 mg Tablet 10 mg PO DAILY PRN (Reason: unknown) RF: 0 finasteride 5 mg Tablet 5 mg PO DAILY RF: 0 Discharge Orders: Discharge Order (Routine); Ordered 02/02/20 Ordered By: Marciano Love Referrals: Chencho Howell MD [Primary Care Provider] - Discharge Diet: Regular Discharge Activity: Increase activity as tolerated Patient Instructions: Heart Failure (ED), Using Oxygen at Home (ED), Chronic Obstructive Pulmonary Disease (ED) Activity Restrictions/Additional Instructions: Follow-up with medical provider as directed in 5-7 days. Wear home oxygen at 2 L when getting up and exerting herself and at night when sleeping. Continue all home medications as prescribed. Return to the ER or your medical provider if condition worsens or increased Shortness of breath. Please read and understand discharge instructions. If any questions, please ask. Coding Level of Care Code ED Cardiology Teacher for Amish Fwd Exam Comprehensive
[2020-02-02 17:37] LABS: Basophils % 0.6 %; Eosinophils # 0.2 10^3/uL (0.0-0.8); Eosinophils % 3.9 %; Hemoglobin 12.3 g/dL (11.7-16.6); Lymphocytes # 1.4 10^3/uL (0.8-4.8); Lymphocytes % 26.3 %; Mean Corpuscular HGB Conc 30.8 g/dL (30.0-36.0); Mean Corpuscular Hemoglobin 32.3 pg (28.0-34.0); Mean Platelet Volume 9.3 fL (7.4-10.4); Monocytes # 0.5 10^3/uL (0.2-0.9); Monocytes % 9.9 %; Neutrophils # 3.03 10^3/uL (1.8-7.7); Neutrophils % 59.1 %; Nucleated Red Blood Cells % 0 %; Platelet Count 147 10^3/cmm (130-400); Red Blood Count 3.81 10^6/uL (4.1-5.3); Red Cell Distribution Width 12.4 % (12.1-15.1); White Blood Count 5.1 10^3/uL (4.0-10.0)
[2020-02-02 17:57] LABS: INR 1.95 (0.8-1.2)
[2020-02-02 17:58] LABS: Partial Thromboplastin Time 37.7 SECONDS (23.9-36.7)
[2020-02-02 18:04] LABS: Lactic Sepsis W/Reflex 1.1 mmol/L (0.5-2.2)
[2020-02-02 18:06] LABS: Troponin(5th) Baseline 21 ng/L (0-15)
[2020-02-02 18:15] LABS: NT Pro B Type Natriuretic Pept 3740 pg/mL (0-450); Procalcitonin 0.05 ng/mL (0-0.5)
[2020-02-02 18:20] VITALS: PULSE 76; RESP 17; O2SAT 99
[2020-02-02 18:27] LABS: Alanine Aminotransferase 12 U/L (0-41); Albumin Level 4.4 g/dL (3.5-5.2); Alkaline Phosphatase 104 IU/L (40-130); Aspartate Amino Transferase 22 U/L (0-40); Blood Urea Nitrogen 8 mg/dL (8-23); Calcium 9.4 mg/dL (8.5-10.5); Carbon Dioxide 27 mmol/L (22-29); Chloride 100 mmol/L (98-107); Globulin 2.6 g/dL (1.3-4.6); Glucose 109 mg/dL (65-115); Osmolality Calculated 289 mOsm/kg (285-295); Sodium 140 mmol/L (136-145); Total Bilirubin 0.8 mg/dL (0.15-1.2)
[2020-02-02 18:57] LABS: Lipase 7 U/L (13-60)
--- NOTE | 2020-02-02 19:04 | ECG_ITS ---
[facility] Test Date: 2020-02-02 Pat Name: Chencho Velázquez Department: Room: Gender: Male Sausage Smoker: : 1935 Requested By: Marciano Love Order Number: [id number] Rodriguez MD: Denver Markham M.D. Measurements Intervals [place] Rate: 71 P: [place]: -1 QRS: -78 QRSD: 217 T: 102 QT: 477 QTc: 520 Interpretive Statements ELECTRONIC VENTRICULAR PACEMAKER ABNORMAL RHYTHM ECG Compared to ECG 02/02/2020 17:21:50 No significant changes Electronically Signed On 02-04-2020 20:24:23 NURSE AIDE EVALUATOR by Denver Markham M.D. [email or web address]/[id number]
[2020-02-02 19:49] VITALS: O2SAT 87
--- NOTE | 2020-02-02 21:07 | PC.SOCIAL ---
Patient having home O2 evaluation done. Chose HOME as he had oxygen with them in the past. He did qualify, section maintainer for HOME was contacted and information faxed. Information faxed to his PCP as well as HOME reports PCP will have to do the order.
[2020-02-02 21:22] VITALS: BP 132/87; PULSE 84; RESP 18; O2SAT 96
== END 2020-02-02 21:23 | disposition home or self-care (01) ==
PROVIDERS: Emergency Provider Physician Assistant; Family Provider Family Medicine; PCP Family Medicine
DX: I11.0 Hypertensive heart disease with heart failure (principal); I50.22 Chronic systolic (congestive) heart failure; J44.9 Chronic obstructive pulmonary disease, unspecified; Z95.0 Presence of cardiac pacemaker; E78.5 Hyperlipidemia, unspecified; I48.91 Unspecified atrial fibrillation; Z79.01 Long term (current) use of anticoagulants; I35.0 Nonrheumatic aortic (valve) stenosis; Z87.891 Personal history of nicotine dependence; Z79.891 Long term (current) use of opiate analgesic; Z99.81 Dependence on supplemental oxygen; Z86.73 Personal history of transient ischemic attack (TIA), and cerebral infarction without residual deficits
CPT/HCPCS: 12345; 71045; 80053; 83605; 83690; 83880; 84145; 84484; 85025; 85610; 85730; 87040; 93005; 99283; 99284

== ENCOUNTER 2020-03-13 07:22 | Observation (INO) | payer MEDICARE, SELFPAY ==
[2020-03-13] VITALS (11 sets, daily range): BP systolic 115–175; BP diastolic 57–83; PULSE 69–91; RESP 16–18; TEMP 36.4–37.2; O2SAT 95–98; BMI 28.5
--- NOTE | 2020-03-13 07:30 | ECG_ITS ---
[facility] Test Date: 2020-03-13 Pat Name: Chencho Velázquez Department: Room: Gender: Male Academic Support Coordinator: : 1935 Requested By: Sawyer Jane Order Number: [id number] Michael MD: Margarita Al M.D. Measurements Intervals [place] Rate: 68 P: [place]: QRS: -77 QRSD: 207 T: 108 QT: 497 QTc: 531 Interpretive Statements ELECTRONIC VENTRICULAR PACEMAKER WITH PVC'S ABNORMAL RHYTHM ECG Compared to ECG 02/02/2020 19:03:00 No significant changes Electronically Signed On 03-13-2020 20:28:46 SOFTWARE TEST AUTOMATION ENGINEER by Margarita Al M.D. [email or web address]/[id number] f
[2020-03-13] MEDS: promethazine 25 mg/mL SDV 1 mL IM (08:00)
--- NOTE | 2020-03-13 08:06 | XR_ITS ---
WS: [id number] PORTABLE CHEST HISTORY: chest pain COMPARISON: 02/02/2020 RIGHT subclavian dual lead pacer. Benign granuloma LEFT lung. No pneumonia. Normal vasculature. No pleural effusion or pneumothorax. Cardiac size: Normal. Mediastinum/Aorta: Mild atherosclerosis aorta. No osseous abnormality seen. XR/XR chest 1V portable [id number] IMPRESSION: Cardiomegaly. No pneumonia.
--- NOTE | 2020-03-13 08:15 | W.ED.CHESTPA ---
HPI - Chest Pain General: Chief Complaint: Chest Pain Stated Complaint: CHEST PAIN/ BACK PAIN Time Seen by Provider: 03/13/20 07:27 History of Present Illness: HPI narrative: 84 yo male with complailnts of chest and back pain. He had this intermittently for 3 to 4 days. He has not been eating well he has some back pain and abdominal pain as well has had some dyspnea with this no diaphoresis has had some nausea and vomiting as well. Patient denies dysuria urgency or frequency MD complaint: chest pain Onset (ago): day(s) (3-4) Timing of current episode: episodic Prior episodes: Yes Onset: during rest Pain location: substernal Pain radiation: back Quality: tightness and sharp Relieving factors: rest Exacerbating factors: eating Associated symptoms: Reports abdominal pain, diaphoresis, dyspnea, nausea and vomiting; Deny fever(s), leg edema, palpitations, sense of impending doom, syncope or other Treatment prior to arrival: none Review of Systems Const: Reports: diaphoresis; Denies: fever(s) ENMT: Denies: throat pain, ear or mastoid pain, nasal discharge or nasal congestion Card: Denies: palpitations or syncope Resp: Reports: dyspnea GI: Reports: abdominal pain, nausea and vomiting : Denies: flank pain, dysuria, urinary frequency or urinary urgency Skin/Breast: Denies: rash or pruritus PFSH ED PFSH: Medical History Anticoagulation adequate with anticoagulant therapy Xarelto Arrhythmia Atrial fibrillation Cardiomyopathy CHF (congestive heart failure) Cholecystectomy planned COPD (chronic obstructive pulmonary disease) CVA (cerebral vascular accident) Dyslipidemia HTN (hypertension) Memory loss Mild aortic stenosis Sick sinus syndrome Sleep apnea Surgical History History of cholecystectomy Status cardiac pacemaker Social History Smoking and tobacco status: former smoker Physical Exam Const: COMMON NORMALS: no acute distress GENERAL APPEARANCE: cooperative and comfortable ORIENTATION/CONSCIOUSNESS: Yes awake, Yes oriented to person, Yes oriented to place and Yes oriented to time HENMT: COMMON NORMALS: normocephalic, atraumatic and hearing grossly normal bilaterally HEAD & SCALP: normocephalic and atraumatic Neck/C-Spine: COMMON NORMALS: no JVD Resp: COMMON NORMALS: normal respiratory effort, No retractions, No use of accessory muscles and clear to auscultation bilaterally AUSCULTATION: clear to auscultation bilaterally Cardio: COMMON NORMALS: no JVD, regular rate, regular rhythm and No murmurs present (Cardio) RATE: regular rate RHYTHM: regular rhythm GI: COMMON NORMALS: Soft to palpation and No hepatosplenomegaly present AUSCULTATION: Yes normoactive bowel sounds PALPATION: Yes Soft to palpation, No Tenderness to palpation present (GI), No Guarding due to palpation present (GI) and Yes No hepatosplenomegaly present Extremity: COMMON NORMALS: normal to inspection, capillary refill normal, no clubbing, cyanosis or edema, no calf tenderness and no pedal edema Neuro: SENSORIUM/ORIENTATION: Yes oriented to person, Yes oriented to place and Yes oriented to time Skin: COMMON NORMALS: no rashes or lesions noted GENERAL SKIN EXAM: no rashes or lesions noted Course Vital Signs: Vital signs: Vital Signs Temperature 97.5 F L 03/13/20 07:26 Pulse Rate 69 03/13/20 11:30 Respiratory Rate 16 03/13/20 11:30 Blood Pressure 141/73 03/13/20 11:30 Pulse Oximetry 97 03/13/20 11:30 MDM - Chest Pain Lab Data: Labs: Lab Results 03/13/20 03/13/20 03/13/20 Range/Units 07:40 07:40 07:40 WBC 8.5 (4.0-10.0) 10^3/ uL RBC 4.15 (4.1-5.3) 10^6/u L Hgb 13.4 (11.7-16.6) g/dL Hct 43.2 (42.0-52.0) % MCV 104.1 H (80-94) fL MCH 32.3 (28.0-34.0) pg MCHC 31.0 (30.0-36.0) g/dL RDW 13.8 (12.1-15.1) % Plt Count 172 (130-400) 10^3/c mm MPV 10.0 (7.4-10.4) fL Neut % (Auto) 68.3 % Lymph % (Auto) 20.3 % [place] % (Auto) 8.8 % Eos % (Auto) 2.0 % Baso % (Auto) 0.5 % Neut # (Auto) 5.79 (1.8-7.7) 10^3/u L Lymph # (Auto) 1.7 (0.8-4.8) 10^3/u L [place] # (Auto) 0.8 (0.2-0.9) 10^3/u L Eos # (Auto) 0.2 (0.0-0.8) 10^3/u L Baso # (Auto) 0.0 (0.0-0.1) 10^3/u L Nucleated RBC % (a uto) 0 % Nucleated RBCs # 0.0 /100WBC Sodium 140 (136-145) mmol/L Potassium 4.4 (3.5-5.1) mmol/L Chloride 101 (98-107) mmol/L Carbon Dioxide 27 (22-29) mmol/L Anion Gap 16.4 (5-19) BUN 14 (8-23) mg/dL Creatinine 1.1 (0.7-1.2) mg/dL GFR Calculation Not Reportable Glucose 138 H (65-115) mg/dL Calculated Osmolal ity 293 (285-295) mOsm/k g Calcium 9.8 (8.5-10.5) mg/dL Total Bilirubin 1.5 H (0.15-1.2) mg/dL AST 23 (0-40) U/L ALT 14 (0-41) U/L Alkaline Phosphata se 105 (40-130) IU/L Troponin T Baselin e 28 H (0-15) ng/L Troponin T 120 Min [place] (0-15) ng/L Delta Troponin T (0-10) ABS# Total Protein 7.1 (6.6-8.7) g/dL Albumin 4.7 (3.5-5.2) g/dL Globulin 2.4 (1.3-4.6) g/dL 03/13/20 Range/Units 09:40 WBC (4.0-10.0) 10^3/ uL RBC (4.1-5.3) 10^6/u L Hgb (11.7-16.6) g/dL Hct (42.0-52.0) % MCV (80-94) fL MCH (28.0-34.0) pg MCHC (30.0-36.0) g/dL RDW (12.1-15.1) % Plt Count (130-400) 10^3/c mm MPV (7.4-10.4) fL Neut % (Auto) % Lymph % (Auto) % [place] % (Auto) % Eos % (Auto) % Baso % (Auto) % Neut # (Auto) (1.8-7.7) 10^3/u L Lymph # (Auto) (0.8-4.8) 10^3/u L [place] # (Auto) (0.2-0.9) 10^3/u L Eos # (Auto) (0.0-0.8) 10^3/u L Baso # (Auto) (0.0-0.1) 10^3/u L Nucleated RBC % (a uto) % Nucleated RBCs # /100WBC Sodium (136-145) mmol/L Potassium (3.5-5.1) mmol/L Chloride (98-107) mmol/L Carbon Dioxide (22-29) mmol/L Anion Gap (5-19) BUN (8-23) mg/dL Creatinine (0.7-1.2) mg/dL GFR Calculation Glucose (65-115) mg/dL Calculated Osmolal ity (285-295) mOsm/k g Calcium (8.5-10.5) mg/dL Total Bilirubin (0.15-1.2) mg/dL AST (0-40) U/L ALT (0-41) U/L Alkaline Phosphata se (40-130) IU/L Troponin T Baselin e (0-15) ng/L Troponin T 120 Min [place] 23.72 H (0-15) ng/L Delta Troponin T -4.28 L (0-10) ABS# Total Protein (6.6-8.7) g/dL Albumin (3.5-5.2) g/dL Globulin (1.3-4.6) g/dL Discharge Plan Discharge Prescriptions: No Action albuterol sulfate 90 mcg/actuation HFA aerosol inhaler 2 inh INHALATION Q6H PRN (Reason: shortness of breath or wheezing) Qty: 6.7 RF: 0 alprazolam [Xanax] 0.5 mg Tablet 0.25 - 0.5 mg PO BEDTIME PRN (Reason: Sleep) RF: 0 Narcan 4 mg/actuation [place],Non-Aerosol See Rx Instructions .ROUTE .COMPLEX RF: 0 multivitamin Tablet 1 tab PO DAILY@08 RF: 0 zinc 50 mg Tablet 50 mg PO DAILY@08 RF: 0 oxycodone 30 mg tablet 30 mg PO QID MDD 7 TABS PRN (Reason: Pain) RF: 0 Xtampza ER 27 mg cap,sprinkl,ER12hr(DONT CRUSH) 54 mg PO QAM RF: 0 ondansetron HCl [Zofran] 4 mg tablet 4 mg PO BID PRN (Reason: Nausea And Vomiting) RF: 0 Vitamin D3 25 mcg (1,000 unit) Capsule 25 mcg PO DAILY@08 RF: 0 carvedilol 25 mg tablet 25 mg PO BID@08,20 RF: 0 Xarelto 20 mg tablet 20 mg PO DAILY@20 RF: 0 tamsulosin [Flomax] 0.4 mg Capsule 0.4 mg PO BID@08,20 RF: 0 pantoprazole 40 mg Tablet,Delayed Release (Dr/Ec) 40 mg PO BID@08,20 RF: 0 montelukast 10 mg Tablet 10 mg PO DAILY PRN (Reason: unknown) RF: 0 finasteride 5 mg Tablet 5 mg PO DAILY@08 RF: 0 Coding Level of Care Code ED Transmission Repairer for Amish [place]
[2020-03-13 08:23] LABS: Basophils % 0.5 %; Eosinophils # 0.2 10^3/uL (0.0-0.8); Hematocrit 43.2 % (42.0-52.0); Hemoglobin 13.4 g/dL (11.7-16.6); Lymphocytes # 1.7 10^3/uL (0.8-4.8); Lymphocytes % 20.3 %; Mean Corpuscular Hemoglobin 32.3 pg (28.0-34.0); Mean Corpuscular Volume 104.1 fL (80-94); Monocytes # 0.8 10^3/uL (0.2-0.9); Monocytes % 8.8 %; Neutrophils # 5.79 10^3/uL (1.8-7.7); Neutrophils % 68.3 %; Nucleated Red Blood Cells % 0 %; Platelet Count 172 10^3/cmm (130-400); Red Blood Count 4.15 10^6/uL (4.1-5.3); Red Cell Distribution Width 13.8 % (12.1-15.1); White Blood Count 8.5 10^3/uL (4.0-10.0)
[2020-03-13 08:32] LABS: Alanine Aminotransferase 14 U/L (0-41); Albumin Level 4.7 g/dL (3.5-5.2); Alkaline Phosphatase 105 IU/L (40-130); Anion Gap 16.4 (5-19); Aspartate Amino Transferase 23 U/L (0-40); Blood Urea Nitrogen 14 mg/dL (8-23); Calcium 9.8 mg/dL (8.5-10.5); Carbon Dioxide 27 mmol/L (22-29); Chloride 101 mmol/L (98-107); Creatinine Clr Calc Pharmacy 60.5072; Globulin 2.4 g/dL (1.3-4.6); Glucose 138 mg/dL (65-115); Osmolality Calculated 293 mOsm/kg (285-295); Potassium 4.4 mmol/L (3.5-5.1); Sodium 140 mmol/L (136-145); Total Bilirubin 1.5 mg/dL (0.15-1.2); Total Protein 7.1 g/dL (6.6-8.7)
[2020-03-13 08:34] LABS: Troponin(5th) Baseline 28 ng/L (0-15)
[2020-03-13] MEDS: nitroglycerin 1 gm/inch oint Pkt 0.5 INCH TOPICAL (09:30)
--- NOTE | 2020-03-13 09:30 | ECG_ITS ---
[facility] Test Date: 2020-03-13 Pat Name: Chencho Velázquez Department: Room: Gender: Male Carpenter Repairer: : 1935 Requested By: Sawyer Jane Order Number: [id number] Michael MD: Margarita Al M.D. Measurements Intervals [place] Rate: 83 P: 114 MS: 189 QRS: -78 QRSD: 214 T: 103 QT: 462 QTc: 544 Interpretive Statements ELECTRONIC VENTRICULAR PACEMAKER ABNORMAL RHYTHM ECG Compared to ECG 02/02/2020 19:03:00 No significant changes Electronically Signed On 03-13-2020 20:57:27 FINANCIAL RETIREMENT PLAN SPECIALIST by Margarita Al M.D. [id number]
[2020-03-13 10:02] LABS: Troponin 5 2HR 23.72 ng/L (0-15)
[2020-03-13 10:06] LABS: Troponin 5 2HR Delta -4.28 ABS# (0-10)
--- NOTE | 2020-03-13 10:17 | CT_ITS ---
WS: [id number] CT ANGIOGRAPHY chest and abdomen AORTA HISTORY: chest/abd for aneurysm TECHNIQUE: Noncontrast CT first performed. CT angiogram is performed during IV injection. Reformation images reviewed. All CT scans at [facility] use at least one of these dose optimization t echniques: automated exposure control; mA and/or kV adjustment per patient size (includes targeted ex ams where dose is matched to clinical indication); or iterative reconstruction. CONTRAST: Omnipaque 350; 95 mL IV. DLP: 1795.35 mGy.cm COMPARISON: 01/20/2017 Thoracic and abdominal aortas: There is extensive atherosclerotic plaque. Calcified plaque and intima l thickening. Ascending aorta with a maximum diameter of 4.3 cm. Descending aorta is mildly ectatic w ith heavy calcified plaque. There is no dissection or aneurysm. Calcified plaque continues to the abd ominal aorta. There is heavy calcified plaque with no aneurysm of any significance. Mild dilatation o f aorta in the infrarenal region measuring up to 2.9 cm. There is a focal ulceration extending to the LEFT from the aorta which is also similar to the study from 2017. Calcification continues into the p roximal iliac arteries. Calcified plaque at the origins of the mesenteric arteries and in the proxima l mesenteric arteries with no occlusions. Renal arteries are both patent but there is at least modera te stenosis involving the LEFT origin. Great vessels arise normally with only a small amount of calci fied plaque. Focal calcification in the LEFT upper lobe. Benign dependent changes at the lung base. No pneumonia. Heart size is enlarged. Significant enlargement of the heart chambers. No pericardial or pleural effu sions. LEFT subclavian dual lead pacer. No adenopathy. Hyperemia with significant mucosal thickening and enhancement with adjacent free fluid involving the duodenal C-loop. There is a large amount of inflammation which actually extends to involve the hepati c flexure. No free air. No osteoblastic or osteolytic bone disease. CT/CT angio chest abdomen IMPRESSION: 1. Advanced atherosclerotic changes within the thoracic and abdominal aortas. No significant aneurysms or aneurysmal rupture. 2. Focal ulcerated plaque to the LEFT within the abdominal aorta is similar to 2017. 3. Hyperemia with circumferential wall thickening and adjacent fluid involving the duodenal C-loop. Significant inflammatory process. Neoplastic process meliton ot be clinically excluded. No free air. The inflammation extends to involve the hepatic flexure. Consider neoplastic or duodenal ulcer. Inflammatory process i s very closely associated also with the distal common bile duct, no obstruction at this time. Notified Sawyer Gutierrez DO at 03/13/2020 11:32 AM.
[2020-03-13] MEDS: iohexol 350 mg/mL 100 mL Btl IV (11:10)
[2020-03-13] MEDS: morphine 4 mg/mL SDV 1 mL 2 MG IVP ×2 (11:19→18:08)
[2020-03-13] MEDS: lidocaine 2% viscous 15 ML, aluminum-mag hydrox-simethicon 30 ML, sucralfate oral liq 1 GM PO (11:33)
--- NOTE | 2020-03-13 11:57 | P.HP_ITS ---
Providers/Chief Complaint Primary Care Provider: Chencho Howell MD Chief Complaint: CHEST PAIN/ BACK PAIN History of Present Illness 84 year old male with past medical history of chronic back pain, peripheral neuropathy, hypertension, CVA, dyslipidemia, obstructive sleep apnea, chronic obstructive pulmonary disease, mild aortic stenosis, paroxysmal atrial fibrillation on xarelto, sick sinus syndrome s/p pacemaker placement and mallory estive heart failure unspecified type who is now presenting to ER with multiple complaints. He noted episode of chest pain early yesterday which resolved however did complain of mid-epigastric abdominal pain radiating to right upper quadrant and back. Denied any nausea or blood emesis. Note multiple episodes of loose watery diarrhea yesteraday however he attributed this to taking x-lax a day prior due to constipation. Stated he does not routinely get diarrhea. Is on chronic pain medication leading to constipation. Inital vitals on arrival showed BP of 151/83, HR of 91, RR of 16, temp of 97.5. Laboratory work up on arrival showed a WBC of 8.5, hgb of 13.4, hct of 43.2, and a platelet count of 172. Sodium of 140, potassium of 4.4, chloride of 101, bicarbonate of 27, BUN of 14 and a creatinine of 1.1. AST of 23, ALT of 14, alkaline phos of 105. Total bili was was 1.5. Troponin T of 28 at baseline with repeat of 23.72 at 120 min. Chest x-ray did now show any acute abnormality however did mention cardiomegaly. CTA of chest/abd/pelvis hyperemia with circumferential wall thickening and adjacent fluid involving the duodenal C- loop. The inflammation extends to involve the hepatic flexure. Inflammatory process is very closely associated also with the distal common bile duct, no obstruction at this time. No free air. In ER patient was given morphine 2 mg IV x 1, phenergan 25 mg IM x 1 and pepcid 40 mg IV x 1 in addition to GI cocktail. General surgery was consulted in ER due to abnormal CT findings. No plan for EGD. Patient was started on CLD Review of Systems General: Reports: 10 or more systems reviewed and unremarkable except in HPI and below Medications/Allergies Home Medications Medication Instructions Recorded Confirmed Last Taken Type albuterol sulfate 2 inh INHALATION Q6H PRN #6.7 gm 03/27/19 03/13/20 Unknown Rx alprazolam [Xanax] 0.25 - 0.5 mg PO BEDTIME PRN 03/27/19 03/13/20 03/11/20 History naloxone [Narcan] See Rx Instructions .ROUTE .COMPLEX 03/27/19 03/13/20 Unknown History finasteride 5 mg PO DAILY@08 08/23/19 03/13/20 03/11/20 History montelukast 10 mg PO DAILY PRN 08/23/19 03/13/20 Unknown History pantoprazole 40 mg PO BID@08/23/19 03/13/20 03/12/20 History tamsulosin [Flomax] 0.4 mg PO BID@,08/23/19 03/13/20 03/12/20 History multivitamin 1 tab PO DAILY@02/02/20 03/13/20 03/11/20 History ondansetron HCl [Zofran] 4 mg PO BID PRN 02/02/20 03/13/20 03/12/20 History oxycodone 30 mg PO QID PRN MDD 7 TABS 02/02/20 03/13/20 02/02/20 15:30 History oxycodone myristate [Xtampza ER] 54 mg PO QAM 02/02/20 03/13/20 03/11/20 History zinc 50 mg PO DAILY@02/02/20 03/13/20 03/11/20 History carvedilol 25 mg PO BID@,03/13/20 03/13/20 03/11/20 History cholecalciferol (vitamin D3) 25 mcg PO DAILY@03/13/20 03/13/20 03/11/20 History [Vitamin D3] rivaroxaban [Xarelto] 20 mg PO DAILY@03/13/20 03/13/20 03/12/20 History Allergies Allergy/AdvReac Type Severity Reaction Status Date / Time amiodarone [From Cordarone] Allergy ALGY-Difficulty Verified 02/02/20 17:13 Breathing amitriptyline Allergy Unknown Verified 02/02/20 17:13 butorphanol [From Stadol] Allergy ADR-Confusi Verified 02/02/20 17:13 on erythromycin base Allergy Unknown Verified 02/02/20 17:13 Penicillins Allergy ALGY-Anaphy Verified 02/02/20 17:13 laxis Sulfa (Sulfonamide Allergy rash Verified 03/13/20 15:27 Antibiotics) PFSH Acute PFSH: Medical History (Updated 03/13/20 @ 15:24 by Garry Patel MD) Anticoagulation adequate with anticoagulant therapy Xarelto Arrhythmia Atrial fibrillation / flutter BPH (benign prostatic hyperplasia) Cardiomyopathy CHF (congestive heart failure) Cholecystectomy planned COPD (chronic obstructive pulmonary disease) CVA (cerebral vascular accident) Dyslipidemia HTN (hypertension) Memory loss Mild aortic stenosis Sick sinus syndrome Sleep apnea Surgical History (Updated 03/13/20 @ 15:24 by Garry Patel MD) History of appendectomy History of cataract surgery Bilateral History of cholecystectomy Open History of esophagogastroduodenoscopy (EGD) 01/2013 --gastritis, CLOtest negative History of umbilical hernia repair History of vasectomy Status cardiac pacemaker Social History Smoking and tobacco status: former smoker Vitals/I&O/Wt Last Vital Signs Temp 97.5 F L 03/13/20 07:26 Pulse 69 03/13/20 10:04 Resp 18 03/13/20 10:04 BP 122/57 03/13/20 10:04 Pulse Ox 98 03/13/20 10:04 Weight last 48 hrs Weight 97.976 kg Physical Exam Const: COMMON NORMALS: no acute distress ORIENTATION/CONSCIOUSNESS: Yes awake and Yes oriented to person HENMT: COMMON NORMALS: normocephalic Resp: COMMON NORMALS: normal respiratory effort, No retractions, No use of accessory muscles and clear to auscultation bilaterally GI: COMMON NORMALS: Normal to inspection, nondistended, normoactive bowel sounds present, Soft to palpation, non-tender and No hepatosplenomegaly present Extremity: COMMON NORMALS: normal to inspection, full ROM and no pedal edema Data : 03/13/20 07:40 03/13/20 07:40 A&P Assessment and plan (1) HTN (hypertension): Status: Acute (2) COPD (chronic obstructive pulmonary disease): Status: Acute Qualifiers: COPD type: unspecified COPD Qualified Code(s): J44.9 - Chronic obstructive pulmonary disease, unspecified (3) CHF (congestive heart failure): Status: Acute Qualifiers: Heart failure chronicity: chronic Heart failure type: systolic Qualified Code(s): I50.22 - Chronic systolic (congestive) heart failure (4) Sleep apnea: Status: Acute (5) Dyslipidemia: Status: Acute (6) Abnormal CT scan, gastrointestinal tract: Status: Acute Chest pain - Troponin 28 - > 23.72 - Chest pain free - Possible reflux - Will obtain ECHO - S/p GI cocktail - Less likely cardiac Gastritis - PPI - Surgery consult noted - Emperically started on abx - No plan for EGD - Will d/w surgery in am - Started on CLD Attestations Medical Necessity Statement*: Will place in observation. Time Spent in Patient Care: Greater than 35 minutes (>than 50% of time spent in counselling and/or direct pt care on unit) . Coding Level of Care Code Acute Videogame Tester for Chg Fwd Diagnoses HTN (hypertension) I10 COPD (chronic obstructive pulmonary disease) J44.9 COPD type: unspecified COPD CHF (congestive heart failure) I50.22 Heart failure chronicity: chronic Heart failure type: systolic Sleep apnea G47.[address] scan, gastrointestinal tract R93.3
--- NOTE | 2020-03-13 13:30 | ECG_ITS ---
[facility] Test Date: 2020-03-13 Pat Name: Chencho Velázquez Department: Room: 254 Gender: Male Wet Process Head Miller: : 1935 Requested By: Sawyer Jane Order Number: [id number] Michael MD: Margarita Al M.D. Measurements Intervals [place] Rate: 73 P: [place]: QRS: -75 QRSD: 213 T: 106 QT: 487 QTc: 539 Interpretive Statements ELECTRONIC VENTRICULAR PACEMAKER WITH PVC'S ABNORMAL RHYTHM ECG Compared to ECG 03/13/2020 09:30:52 No significant changes Electronically Signed On 03-13-2020 20:52:33 ENGINEERING TEST SPECIALIST by Margarita Al M.D. [id number]
--- NOTE | 2020-03-13 15:13 | PM.CONSULT ---
Providers/Reason For Consult Consulting Physican/Specialty*: General Surgery Garry Patel MD Reason for Consult*: Possible duodenal ulcer. Attending Physician: Chan Hennessy Primary Care Provider: Chencho Howell MD History of Present Illness History of Present Illness Chencho Velázquez is a 84 year old male who presented to the emergency room today with a 2-day history of upper chest pain. He said this was unassociated with shortness of breath, diaphoresis, etc. this was apparently associated with some bilateral upper and lower extremity discomfort and pain all over. He was worked up for a cardiac problem in the emergency room but none was found. He ended up having a CAT scan of his chest and abdomen and there was some inflammatory change seen around the second portion of his duodenum. The radiologist felt this could be consistent with ulcer disease versus neoplasia. The patient initially denied any abdominal symptoms to me but says that occasionally he will have some periumbilical discomfort and right-sided abdominal pain. He says this is not new. He has been having some loose stool recently but without evidence of hematochezia or melena. He does have a known history of gastritis on an EGD back in 2012 but denies any recent problems with that. He reportedly takes Protonix twice a day at home. I just take what my gives me. He denies any NSAID use. He has not had any problems eating recently and has not had any symptoms before or after eating. He says his has not allowed him much to eat over the last couple of days because she was afraid I might need an x-ray because I was not feeling well. Review of Systems General: Reports: 10 or more systems reviewed and unremarkable except in HPI and below Const: Denies: fever(s) Card: Reports: chest pain GI: Reports: diarrhea; Denies: abdominal pain, hematochezia or melena : Denies: difficulty urinating or dysuria Meds/Allergies Home Medications and Allergies Home Medications Medication Instructions Recorded Confirmed Last Taken Type albuterol sulfate 2 inh INHALATION Q6H PRN #6.7 gm 03/27/19 03/13/20 Unknown Rx alprazolam [Xanax] 0.25 - 0.5 mg PO BEDTIME PRN 03/27/19 03/13/20 03/11/20 History naloxone [Narcan] See Rx Instructions .ROUTE .COMPLEX 03/27/19 03/13/20 Unknown History finasteride 5 mg PO DAILY@08/23/19 03/13/20 03/11/20 History montelukast 10 mg PO DAILY PRN 08/23/19 03/13/20 Unknown History pantoprazole 40 mg PO BID@,08/23/19 03/13/20 03/12/20 History tamsulosin [Flomax] 0.4 mg PO BID@08/23/19 03/13/20 03/12/20 History multivitamin 1 tab PO DAILY@02/02/20 03/13/20 03/11/20 History ondansetron HCl [Zofran] 4 mg PO BID PRN 02/02/20 03/13/20 03/12/20 History oxycodone 30 mg PO QID PRN MDD 7 TABS 02/02/20 03/13/20 02/02/20 15:30 History oxycodone myristate [Xtampza ER] 54 mg PO QAM 02/02/20 03/13/20 03/11/20 History zinc 50 mg PO DAILY@02/02/20 03/13/20 03/11/20 History carvedilol 25 mg PO BID@03/13/20 03/13/20 03/11/20 History cholecalciferol (vitamin D3) 25 mcg PO DAILY@03/13/20 03/13/20 03/11/20 History [Vitamin D3] rivaroxaban [Xarelto] 20 mg PO DAILY@03/13/20 03/13/20 03/12/20 History Allergies Allergy/AdvReac Type Severity Reaction Status Date / Time amiodarone [From Cordarone] Allergy ALGY-Difficulty Verified 02/02/20 17:13 Breathing amitriptyline Allergy Unknown Verified 02/02/20 17:13 butorphanol [From Stadol] Allergy ADR-Confusi Verified 02/02/20 17:13 on erythromycin base Allergy Unknown Verified 02/02/20 17:13 Penicillins Allergy ALGY-Anaphy Verified 02/02/20 17:13 laxis Sulfa (Sulfonamide Allergy rash Verified 03/13/20 15:27 Antibiotics) Current Medications Current Medications Generic Name Dose Route Start Last Admin Trade Name Freq PRN Reason Stop Dose Admin Sodium Chloride 1,000 mls @ 50 mls/hr 03/13/20 12:30 03/13/20 15:08 Sodium Chloride 0.9% IV Not Given .Q20H RENY PFSH Acute PFSH: Medical History (Updated 03/13/20 @ 15:24 by Garry Patel MD) Anticoagulation adequate with anticoagulant therapy Xarelto Arrhythmia Atrial fibrillation / flutter BPH (benign prostatic hyperplasia) Cardiomyopathy CHF (congestive heart failure) Cholecystectomy planned COPD (chronic obstructive pulmonary disease) CVA (cerebral vascular accident) Dyslipidemia HTN (hypertension) Memory loss Mild aortic stenosis Sick sinus syndrome Sleep apnea Surgical History (Updated 03/13/20 @ 15:24 by Garry Patel MD) History of appendectomy History of cataract surgery Bilateral History of cholecystectomy Open History of esophagogastroduodenoscopy (EGD) 01/2013 --gastritis, CLOtest negative History of umbilical hernia repair History of vasectomy Status cardiac pacemaker Social History Smoking and tobacco status: former smoker Vitals/I&O/Wt Last Vital Signs Temp 98.7 F 03/13/20 14:27 Pulse 69 03/13/20 14:27 Resp 18 03/13/20 14:27 BP 153/63 03/13/20 14:27 Pulse Ox 97 03/13/20 14:27 Weight last 48 hrs Weight 216 lb Physical Exam Narrative: EXAM NARRATIVE: The patient was encountered in his hospital room. He does not appear to be in any distress. The pupils are equal. No carotid bruits are heard. The lungs are clear. The heart reveals some occasional irregularities. The abdomen reveals good bowel sounds and is soft. He has bowel sounds present. He has some very mild right-sided abdominal discomfort,, certainly no evidence of peritoneal inflammation. The extremities reveal no edema. Neurologically the patient appears to be grossly intact. Data Imaging^: Other CT: Radiologist's impression: CT angio chest/abdomen 03/13/2020 IMPRESSION: 1. Advanced atherosclerotic changes within the thoracic and abdominal aortas. No significant aneurysms or aneurysmal rupture. 2. Focal ulcerated plaque to the LEFT within the abdominal aorta is similar to 2017. 3. Hyperemia with circumferential wall thickening and adjacent fluid involving the duodenal C-loop. Significant inflammatory process. Neoplastic process cannot be clinically excluded. No free air. The inflammation extends to involve the hepatic flexure. Consider neoplastic or duodenal ulcer. Inflammatory process is very closely associated also with the distal common bile duct, no obstruction at this time. A&P Assessment and plan (1) Abnormal CT scan, gastrointestinal tract: CT images reviewed. The patient does appear to have some periduodenal inflammation around the second portion of the duodenum with a small amount of retroperitoneal stranding/fluid. There is no evidence of retroperitoneal air or obvious perforation. I am hesitant to proceed with an EGD in the very near future; if the patient has any inflammatory change or friability to that tissue I certainly do not want to make things worse at this time. The patient does not have much in the way of abdominal symptoms at all. He says what brought him to the hospital was upper chest discomfort which is now somewhat better. He was hoping to get something to eat; he says his has not allowed him anything to eat for 2 days at home because she thought he needed an x-ray. I will allow him some clear liquids for now. I will continue to follow the patient while he is hospitalized. Status: Acute (2) History of gastritis: The patient did have some gastritis on an EGD back in 2012, but he has been on Protonix twice daily according to his medication list. His CLOtest was negative at that time. Status: Acute Consult Attestations Medical Necessity Statement: See admitting service's notation. Coding Level of Care Code Acute Licensed Investment Sales Assistant for [facility] [place] Diagnoses Abnormal CT scan, gastrointestinal tract R93.3 History of gastritis Z87.19
[2020-03-13] MEDS: D5-NS 0.45% + KCL 20 mEq 20 MEQ/1,000 ML BAG 100 MEQ IV (15:57)
[2020-03-13] MEDS: metroNIDAZOLE IV 500 MG/100 ML PREMIX 100 MG IV ×2 (15:58→22:36)
[2020-03-13] MEDS: ciprofloxacin 400 MG/200 ML PREMIX 200 MG IV (17:33)
[2020-03-13] MEDS: pantoprazole DR 40 mg Tablet PO (17:33)
[2020-03-13] MEDS: ondansetron 2 mg/ML SDV 2 mL 4 MG IVP (18:08)
[2020-03-13] MEDS: acetaminophen 325 mg Tablet 650 MG PO (19:20)
[2020-03-13] MEDS: metoclopramide 5 mg/mL SDV 2 mL 10 MG IVP (22:22)
[2020-03-14] VITALS (7 sets, daily range): BP systolic 148–156; BP diastolic 52–87; PULSE 72–80; RESP 16–18; TEMP 36.7–37.3; O2SAT 96–97
[2020-03-14] MEDS: ciprofloxacin 400 MG/200 ML PREMIX 200 MG IV (03:05)
[2020-03-14] MEDS: morphine 4 mg/mL SDV 1 mL 2 MG IVP ×2 (03:10→08:10)
[2020-03-14 03:36] LABS: Basophils # 0.1 10^3/uL (0.0-0.1); Basophils % 0.8 %; Eosinophils # 0.1 10^3/uL (0.0-0.8); Eosinophils % 2.4 %; Hematocrit 36.2 % (42.0-52.0); Hemoglobin 11.7 g/dL (11.7-16.6); Lymphocytes # 1.8 10^3/uL (0.8-4.8); Lymphocytes % 29.7 %; Mean Corpuscular HGB Conc 32.3 g/dL (30.0-36.0); Mean Corpuscular Hemoglobin 32.6 pg (28.0-34.0); Mean Corpuscular Volume 100.8 fL (80-94); Monocytes # 0.7 10^3/uL (0.2-0.9); Monocytes % 12.1 %; Neutrophils # 3.25 10^3/uL (1.8-7.7); Neutrophils % 54.7 %; Nucleated Red Blood Cells % 0 %; Platelet Count 182 10^3/cmm (130-400); Red Blood Count 3.59 10^6/uL (4.1-5.3); Red Cell Distribution Width 13.5 % (12.1-15.1)
[2020-03-14] MEDS: metroNIDAZOLE IV 500 MG/100 ML PREMIX 100 MG IV (05:37)
--- NOTE | 2020-03-14 06:00 | USCV_ITS ---
Chencho Velázquez Age: 84 Gender: M : 1935 Exam Date: 03/14/2020 10:41 Ordering Phys: Chan Hennessy MD Technologist: Chaim Pemberton [place] [facility] [place]: [place]ST PAIN BP: 157 / 87 HR: Rhythm: Sinus Technical Quality: Fair MEASUREMENTS (Male / Female) Normal Values 2D ECHO LV Diastolic Diameter PLAX 4.8 cm 4.2 - 5.9 / 3.9 - 5.3 cm LV Systolic Diameter PLAX 4.1 cm IVS Diastolic Thickness 1.1 cm 0.6 - 1.0 / 0.6 - 0.9 cm IVS Systolic Thickness 1.5 cm LVPW Diastolic Thickness 1.0 cm 0.6 - 1.0 / 0.6 - 0.9 cm LVPW Systolic Thickness 1.5 cm LVOT Diameter 2.1 cm LV Ejection Fraction 2D Teich 31.3 % LV Ejection Fraction MOD 2C 62.5 % LV Ejection Fraction 2C AL 61.6 % LA Diameter 4.6 cm LA Width 4.8 cm LA Height 6.5 cm RA Width 4.4 cm RA Height 6.8 cm Aorta at Sinotubular Diameter 3.5 cm M-MODE LV Diastolic Diameter MM 5.9 cm 4.2 - 5.9 / 3.9 - 5.3 cm LV Systolic Diameter MM 4.4 cm LV Ejection Fraction MM Teich 50.5 % IVS Diastolic Thickness MM 0.9 cm 0.6 - 1.0 / 0.6 - 0.9 cm IVS Systolic Thickness MM 1.7 cm LVPW Diastolic Thickness MM 1.2 cm 0.6 - 1.0 / 0.6 - 0.9 cm LVPW Systolic Thickness MM 1.6 cm RV Diastolic Diameter MM 2.0 cm Aortic Annulus Diameter 4.1 cm LA Ao Ratio MM 1.2 MV E Point Septal Separation 2.0 cm DOPPLER AV Peak Velocity 150.0 cm/s LVOT Peak Velocity 66.0 cm/s AV Area Cont Eq vti 1.6 cm squared AV Area Cont Eq pk 1.5 cm squared MV Area PHT 5.0 cm squared Mitral E to A Ratio 1.0 MV E' Velocity 57.5 cm/s Mitral E to MV E' Ratio 18.8 Mitral E to LV E' Lateral Ratio 17.9 Mitral E to LV E' Septal Ratio 19.9 TR Peak Velocity 332.3 cm/s TR Peak Gradient 44.2 mmHg TV Peak E Velocity 111.0 cm/s Right Atrial Pressure 3.0 mmHg Pulmonary Artery Systolic Pressu 47.2 mmHg PV Peak Velocity 107.0 cm/s FINDINGS Left Ventricle Diffuse hypokinesia of the left ventricle with a diminished ejection fraction of around 40%-visual Right Ventricle Mildly dilated right ventricle with normal ejection fraction pacemaker/ICD wire in the right ventricle Right Atrium Mildly increased right atrial size. Pacemaker/ICD wire. Left Atrium Mildly increased left atrial size. Mitral Valve Mild mitral valve regurgitation. Aortic Valve Trace to mild aortic valve regurgitation. Tricuspid Valve [id number] tricuspid valve regurgitation. Estimated pulmonary artery peak systolic pressure 47 mmHg Pulmonic Valve Structurally normal pulmonic valve without significant stenosis. There is no pulmonic regurgitation. Pericardium No pericardial effusion. Aorta Normal aortic annulus size. CONCLUSIONS Diffuse hypokinesia of the left ventricle with a diminished ejection fraction of around 40%-visual Mildly dilated right ventricle with normal ejection fraction. Mild biatrial enlargement Pacemaker/ICD wire in the right atrium/right ventricle Thickened aortic and mitral valves.[id number] tricuspid valve regurgitation. Trace to mild aortic valve regurgitation. Mild mitral valve regurgitation. Estimated pulmonary artery peak systolic pressure 47 mmHg There is no pericardial effusion. There are no intracardiac masses. Compared to the previous study from 04/22/2018, there may not be a significant change Dr Hany Miles MD [facility] (Electronically Signed) Final Date: 14 March 2020 21:31 S
[2020-03-14] MEDS: lactobacillus 1 Tablet 1 TAB PO ×2 (08:10→12:10)
[2020-03-14] MEDS: pantoprazole DR 40 mg Tablet PO (08:10)
[2020-03-14 09:28] LABS: Alanine Aminotransferase 15 U/L (0-41); Albumin Level 4.5 g/dL (3.5-5.2); Alkaline Phosphatase 99 IU/L (40-130); Aspartate Amino Transferase 29 U/L (0-40); Blood Urea Nitrogen 13 mg/dL (8-23); Calcium 9.6 mg/dL (8.5-10.5); Carbon Dioxide 27 mmol/L (22-29); Chloride 98 mmol/L (98-107); Globulin 2.7 g/dL (1.3-4.6); Glucose 133 mg/dL (65-115); Magnesium 1.8 mg/dL (1.7-2.3); Osmolality Calculated 282 mOsm/kg (285-295); Phosphorus 2.3 mg/dL (2.5-4.5); Sodium 135 mmol/L (136-145); Total Bilirubin 1.6 mg/dL (0.15-1.2); Total Protein 7.2 g/dL (6.6-8.7)
[2020-03-14 09:34] LABS: Anion Gap 14.1 (5-19); Potassium 4.1 mmol/L (3.5-5.1)
--- NOTE | 2020-03-14 10:42 | P.DS_ITS ---
Discharge Providers Date of Admission: 03/13/20 11:58 Date of Discharge: March 14, 2020 Attending Provider at Admission: Chan Hennessy Attending Provider at Discharge: Chan Hennessy Primary Care Provider: Chencho Howell MD Diagnoses at Discharge Discharge Diagnosis (1) Abnormal CT scan, gastrointestinal tract: Status: Acute (2) History of gastritis: Status: Acute Reason for Visit Reason for Visit: CHEST PAIN/ BACK PAIN Hospital Course Hospital Course 84 year old male with past medical history of chronic back pain, peripheral neuropathy, hypertension, CVA, dyslipidemia, obstructive sleep apnea, chronic obstructive pulmonary disease, mild aortic stenosis, paroxysmal atrial fibrillation on xarelto, sick sinus syndrome s/p pacemaker placement and congestive heart failure unspecified type who is now presenting to ER with multiple complaints. He noted episode of chest pain early yesterday which resolved however did complain of mid-epigastric abdominal pain radiating to right upper quadrant and back. Denied any nausea or blood emesis. Note multiple episodes of loose watery diarrhea yesteraday however he attributed this to taking x-lax a day prior due to constipation. Stated he does not routinely get diarrhea. Is on chronic pain medication leading to constipation. Inital vitals on arrival showed BP of 151/83, HR of 91, RR of 16, temp of 97.5. Laboratory work up on arrival showed a WBC of 8.5, hgb of 13.4, hct of 43.2, and a platelet count of 172. Sodium of 140, potassium of 4.4, chloride of 101, bicarbonate of 27, BUN of 14 and a creatinine of 1.1. AST of 23, ALT of 14, alkaline phos of 105. Total bili was was 1.5. Troponin T of 28 at baseline with repeat of 23.72 at 120 min. Chest x-ray did now show any acute abnormality however did mention cardiomegaly. CTA of chest/abd/pelvis hyperemia with circumferential wall thickening and adjacent fluid involving the duodenal C- loop. The inflammation extends to involve the hepatic flexure. Inflammatory process is very closely associated also with the distal common bile duct, no obstruction at this time. No free air. In ER patient was given morphine 2 mg IV x 1, phenergan 25 mg IM x 1 and pepcid 40 mg IV x 1 in addition to GI cocktail. General surgery was consulted in ER due to abnormal CT findings. No plan for EGD. Patient was started on CLD. Patient was empirically also started on antibiotics. Diet was then advanced and tolerated by patient. Advised to continue Protonix 40 mg twice daily and follow-up with general surgery for possible arrangement of EGD outpatient. Advised to return to hospital if any recurrence of abdominal pain.He was continued on antibiotics for a total 7 days. Patient did not have any recurrence of chest pain. Echocardiogram was performed which showed no significant change from prior with a EF of 40%. No additional cardiac workup was performed. Laboratory workup on day of discharge showed WBC of 6.0, hemoglobin of 11.7, hematocrit 36.2 and platelet count 182. Sodium 135, potassium 4.1, chloride 98, bicarb 27, BUN 13, creatinine 1.0. Physical Exam Const: COMMON NORMALS: no acute distress ORIENTATION/CONSCIOUSNESS: Yes awake and Yes oriented to person HENMT: COMMON NORMALS: normocephalic HEAD & SCALP: normocephalic Resp: COMMON NORMALS: normal respiratory effort, No retractions, No use of accessory muscles and clear to auscultation bilaterally AUSCULTATION: clear to auscultation bilaterally GI: COMMON NORMALS: Normal to inspection, nondistended, normoactive bowel sounds present, Soft to palpation, non-tender and No hepatosplenomegaly present PALPATION: Yes Soft to palpation and Yes No hepatosplenomegaly present Extremity: COMMON NORMALS: normal to inspection, full ROM and no pedal edema Neuro: SENSORIUM/ORIENTATION: Yes oriented to person Discharge Data Data Completed and Pending: Completed Studies During Hospitalization Category Date Time Status CT angio chest ab domen Stat Cat Scan 03/13/20 10:17 Completed XR chest 1V tisha ble [id number] Stat Exams 03/13/20 08:06 Completed CV echo complete* [id number] Routine Ultrasound 03/14/20 06:00 Completed Vitals: Last Vital Signs Temp 98.0 F 03/14/20 15:11 Pulse 75 03/14/20 15:11 Resp 16 03/14/20 15:11 BP 148/52 03/14/20 15:11 Pulse Ox 96 03/14/20 15:11 Discharge Plan Discharge Patient Disposition: Home Condition: Stable Prescriptions: New Lactobacillus acidoph-L.bulgar 1 million cell Tablet 1 tab PO BID Qty: 30 RF: 0 ciprofloxacin HCl 500 mg tablet 500 mg PO BID Qty: 12 RF: 0 Flagyl 500 mg tablet 500 mg PO Q8H 6 Days Qty: 18 RF: 0 Continued albuterol sulfate 90 mcg/actuation HFA aerosol inhaler 2 inh INHALATION Q6H PRN (Reason: shortness of breath or wheezing) Qty: 6.7 RF: 0 alprazolam [Xanax] 0.5 mg Tablet 0.25 - 0.5 mg PO BEDTIME PRN (Reason: Sleep) RF: 0 Narcan 4 mg/actuation [place],Non-Aerosol See Rx Instructions .ROUTE .COMPLEX RF: 0 multivitamin Tablet 1 tab PO DAILY@08 RF: 0 zinc 50 mg Tablet 50 mg PO DAILY@08 RF: 0 oxycodone 30 mg tablet 30 mg PO QID MDD 7 TABS PRN (Reason: Pain) RF: 0 Xtampza ER 27 mg cap,sprinkl,ER12hr(DONT CRUSH) 54 mg PO QAM RF: 0 ondansetron HCl [Zofran] 4 mg tablet 4 mg PO BID PRN (Reason: Nausea And Vomiting) RF: 0 Vitamin D3 25 mcg (1,000 unit) Capsule 25 mcg PO DAILY@08 RF: 0 carvedilol 25 mg tablet 25 mg PO BID@08,20 RF: 0 Xarelto 20 mg tablet 20 mg PO DAILY@20 RF: 0 tamsulosin [Flomax] 0.4 mg Capsule 0.4 mg PO BID@08,20 RF: 0 pantoprazole 40 mg Tablet,Delayed Release (Dr/Ec) 40 mg PO BID@08,20 RF: 0 montelukast 10 mg Tablet 10 mg PO DAILY PRN (Reason: unknown) RF: 0 finasteride 5 mg Tablet 5 mg PO DAILY@08 RF: 0 Discharge Orders: Discharge Order (Routine); Ordered 03/14/20 Ordered By: Chan Hennessy Referrals: Garry Patel MD [Physician] - 03/28/20 2:00 pm (You have an appointment with Dr. Patel on March 28 at 2:00. Please arrive at 1:45 to check in.) Chencho Howell MD [Primary Care Provider] - 03/15/20 2:15 pm (You have a follow up appointment with Dr. Howell on March 15 at 2:15.) Discharge Diet: Advance as tolerated Discharge Activity: Resume usual activity Patient Instructions: Ciprofloxacin (By mouth), Metronidazole (By mouth), Probiotic (By mouth), Gastritis (DC), Chronic Obstructive Pulmonary Disease (DC), Chronic Hypertension (DC), COPD Stoplight Activity Restrictions/Additional Instructions: Monitor or any new or recurrence of abdominal or chest pain. Return to ER if unable to tolerate oral intake, nausea or vomiting. Discharge Attestations Time Spent in Discharge Care*: greater than 30 min Specific Discharge Activities: educating patient, educating and/or supporting family/caregiver, discussing with pcp/other providers, discussing with child support case officer/social workers/dc planners, documenting/other paperwork and evaluating patient/reviewing data Status at Discharge: Cognitive status at discharge: mildly impaired cognition , Behavioral status at discharge: cooperative , Functional status at discharge: independent ambulation Overall status at discharge: patient is back to baseline Quality Metrics Clinical Quality Measures During this hospital stay, did patient experience: None Coding Level of Care Code Acute Perinatal [employer] Diagnoses Abnormal CT scan, gastrointestinal tract R93.3 History of gastritis Z87.19
--- NOTE | 2020-03-14 13:10 | P.PN_ITS ---
Subjective Subjective: Interval history: The patient seems a little upset that he is still in the hospital. He would like to go home. He says this despite the fact that he also tells me that he is getting some nausea. Vitals/I&O/Wt Last Vital Signs Temp 99.1 F 03/14/20 07:39 Pulse 72 03/14/20 11:40 Resp 18 03/14/20 07:39 BP 153/57 03/14/20 07:39 Pulse Ox 97 03/14/20 11:40 03/13/20 03/14/20 03/14/20 22:59 06:59 14:59 Intake Total 420 / 520 100 / 520 1300 / 1300 Output Total 350 / 350 Balance 420 / 170 -250 / 170 1300 / 1300 Weight last 48 hrs Weight 216 lb Physical Exam Narrative: EXAM NARRATIVE: The abdomen seems nontender; I cannot even appreciate any right-sided tenderness like he had yesterday. Data : 03/14/20 03:20 03/14/20 08:56 A&P Assessment and plan (1) Abnormal CT scan, gastrointestinal tract: The patient's abdominal exam is benign. He is very anxious to go home. I am going to advance his diet to see how he does, but I would be happy for him to follow-up in my office as an outpatient for an EGD in several weeks. Status: Acute (2) History of gastritis: The patient did have some gastritis on an EGD back in 2012, but he has been on Protonix twice daily according to his medication list. His CLOtest was negative at that time. Status: Acute Attestations Medical Necessity Statement*: See admitting service's notation. Coding Level of Care Code [facility] Diagn[facility] Abnormal CT scan, gastrointestinal tract R93.3 History of gastritis Z87.19
--- NOTE | 2020-03-14 14:32 | PC.NURSE ---
pt received discharge paperwork. IV taken out, asymptomatic. pt informed me that he just wanted to for his to bring him a jacket upon discharge, not any changes of clothes. notified Catherine of pts request and notified Catherine that he is ready for discharge and to meet security at parking lot 7. all questions answered.
[2020-03-14 15:07] LABS: Coronavirus Test Green County Not Detected
[2020-03-15 13:08] LABS: H. Pylori IgG Antibody Negative (Negative)
--- NOTE | 2020-03-15 17:29 | PC.RESP ---
Pulmonary Rehab information sent to patient.
== END 2020-03-14 15:11 | disposition home or self-care (01) ==
LOC: ER 07:30 → MEDSURG 12:57
PROVIDERS: Surgery; Admitting Provider Hospitalist; Emergency Provider Family Medicine; PCP Family Medicine; Visit Provider Hospitalist
DX: R93.3 Abnormal findings on diagnostic imaging of other parts of digestive tract (principal); I11.0 Hypertensive heart disease with heart failure; I50.22 Chronic systolic (congestive) heart failure; J44.9 Chronic obstructive pulmonary disease, unspecified; E78.5 Hyperlipidemia, unspecified; G47.33 Obstructive sleep apnea (adult) (pediatric); I48.0 Paroxysmal atrial fibrillation; Z79.01 Long term (current) use of anticoagulants; Z95.0 Presence of cardiac pacemaker; N40.0 Benign prostatic hyperplasia without lower urinary tract symptoms; Z87.19 Personal history of other diseases of the digestive system
CPT/HCPCS: 12345; 36415; 71045; 71275; 74175; 80053; 83735; 84100; 84484; 85025; 86677; 87635; 93005; 93306; 96365; 96366; 96367; 96372; 96375; 99283; 99285; G0378; J0744; J2270; J2405; J2550; J2765; Q9967; S0030

== ENCOUNTER 2020-03-31 16:19 | Emergency (ER) | payer MEDICARE, SELFPAY ==
--- NOTE | 2020-03-31 16:23 | CTR_ITS ---
PROCEDURE INFORMATION: Exam: CT Head Without Contrast Exam date and time: 03/31/2020 5:01 PM Age: 84 years old Clinical indication: Injury or trauma; Fall; Blunt trauma (contusions or hematomas); Additional info: Fall hit head, backwards fall TECHNIQUE: Imaging protocol: Computed tomography of the head without contrast. Total images: 212 Radiation optimization: All CT scans at this facility use at least one of these dose optimization techniques: automated exposure control; mA and/or kV adjustment per patient size (includes targeted exams where dose is matched to clinical indication); or iterative reconstruction. COMPARISON: CT head wo con* [id number] 08/23/2019 12:09 PM RADIATION DOSE METRICS: Total DLP (mGy-cm): 873.63 FINDINGS: Brain: No evidence of active or acute intracranial pathologic process, hemorrhage, or trauma. No visible cerebral edema. No mass effect. No midline shift. Advanced cerebral and cerebellar atrophy with ventricular dilatation greater than that anticipated for patient's chronological age. Cerebral arteriosclerosis. Advanced small vessel ischemic disease with senile periventricular leukomalacia. Cerebral ventricles: Ventriculomegaly greater than the degree of cerebral atrophy present. Thinning of the corpus callosum. Consideration might be given to normal pressure hydrocephalus. Bones/joints: Unremarkable. No acute fracture. Paranasal sinuses: Visualized sinuses are unremarkable. No fluid levels. Mastoid air cells: Visualized mastoid air cells are well aerated. Soft tissues: Unremarkable. CT/CT head wo con* [id number] IMPRESSION: No evidence of active or acute intracranial pathologic process, hemorrhage, or trauma. Radiation Dose CTDIVOL = (mGy): DLP = 873.63 (mGy-cm)
--- NOTE | 2020-03-31 16:23 | XRR_ITS ---
PROCEDURE INFORMATION: Exam: XR Chest, 1 View Exam date and time: 03/31/2020 4:28 PM Age: 84 years old Clinical indication: Injury or trauma; Fall; Blunt trauma (contusions or hematomas); Prior surgery; Surgery type: Pacemaker; Additional info: Fall. Humerus FX TECHNIQUE: Imaging protocol: XR of the chest Views: 1 view. Total images: 1 COMPARISON: CR XR chest 1V portable [id number] 03/13/2020 8:05 AM FINDINGS: Tubes, catheters and devices: Pacemaker. Lungs: No visible pulmonary contusion. No visible active interstitial or alveolar airspace disease. Calcified granulomas of antecedent disease. Pleural space: Unremarkable. No pleural effusion. No pneumothorax. Heart/Mediastinum: Cardiac structures and configuration with cardiomegaly. Arteriosclerosis. Tortuous thoracic aorta which can be seen in hypertensive cardiovascular disease. Bones/joints: Complex comminuted right humeral head and neck fracture. XR/XR chest 1V portable [id number] IMPRESSION: Complex comminuted right humeral head neck fracture.
[2020-03-31 16:24] VITALS: BP 125/78; PULSE 75; RESP 18; TEMP 36.9; O2SAT 94; BMI 27.9
--- NOTE | 2020-03-31 16:25 | CTR_ITS ---
PROCEDURE INFORMATION: Exam: CT Cervical Spine Without Contrast Exam date and time: 03/31/2020 5:01 PM Age: 84 years old Clinical indication: Injury or trauma; Blunt trauma; Injury details: Backwards fall; Prior surgery; Surgery type: Pacer TECHNIQUE: Imaging protocol: Computed tomography images of the cervical spine without contrast. Total images: 354 Radiation optimization: All CT scans at this facility use at least one of these dose optimization techniques: automated exposure control; mA and/or kV adjustment per patient size (includes targeted exams where dose is matched to clinical indication); or iterative reconstruction. COMPARISON: CT Cervical Spine wo* [id number] 12/14/2015 2:00 PM RADIATION DOSE METRICS: Total DLP (mGy-cm): 734.2 FINDINGS: Bones/joints: No visible fracture, subluxation, or dislocation. Degenerative disease with spondylosis deformans most advanced with associated anterior syndesmophyte formation C4, C5, C6, and C7. Facet arthrosis. Straightening of the normal cervical lordosis which may be positional nature. Discs/Spinal canal/Neural foramina: Left paramedian focal annular disc bulge C4/C5 with resulting left neural foraminal stenosis and would anticipate left C5 radiculopathy. Mild central canal narrowing. Advanced degenerative disc disease C5/C6 and C6/C7 with mild posterior disc bulging not resulting in significant central canal stenosis. Right neural foraminal stenosis C3/C4 due to facet arthrosis. Left neural foraminal stenosis C4/C5. Bilateral neural foraminal narrowing C6/C7. Lungs: Lung apices are unremarkable for age. Soft tissues: Unremarkable for age. CT/CT cervical spin wo con* [id number] IMPRESSION: 1. No visible fracture, subluxation, or dislocation. 2. Advanced degenerative disease and degenerative disc disease as detailed in text above. Radiation Dose CTDIVOL = (mGy): DLP = 734.2 (mGy-cm)
--- NOTE | 2020-03-31 16:25 | XRR_ITS ---
PROCEDURE INFORMATION: Exam: XR Right Shoulder Exam date and time: 03/31/2020 4:28 PM Age: 84 years old Clinical indication: Injury or trauma; Fall; Blunt trauma (contusions or hematomas); Shoulder; Right; Additional info: Fall/deformity TECHNIQUE: Imaging protocol: XR Right shoulder. Views: 2 or more views. Total images: 3 COMPARISON: No relevant prior studies available. FINDINGS: Tubes, catheters and devices: Pacemaker. Bones/joints: Complex comminuted right humeral head and neck fracture with impaction and medial displacement. Advanced arthrosis AC joint. Osteopenia/osteoporosis. No visible rib fracture within the field of view. Lungs: No visible pulmonary contusion or hemothorax within the field of view. Soft tissues: Normal. XR/XR shoulder RT min 2V* [id number] IMPRESSION: Complex comminuted right humeral head and neck fracture with impaction and medial displacement.
--- NOTE | 2020-03-31 16:25 | XRR_ITS ---
PROCEDURE INFORMATION: Exam: XR Right Humerus Exam date and time: 03/31/2020 4:28 PM Age: 84 years old Clinical indication: Injury or trauma; Fall; Blunt trauma (contusions or hematomas); Arm, upper; Right; Additional info: Fall/deformity proximal humerus TECHNIQUE: Imaging protocol: XR Right humerus Views: 2 or more views. Total images: 2 COMPARISON: No relevant prior studies available. FINDINGS: Bones/joints: Complex comminuted right humeral head and neck fracture with near complete anteromedial displacement. Impaction of approximately 2 cm. Osteopenia. Soft tissues: Soft tissue swelling. XR/[place] [id number] IMPRESSION: Complex comminuted right humeral head neck fracture.
--- NOTE | 2020-03-31 16:26 | W.ED.FALL ---
HPI - Fall General: Chief Complaint: Fall Stated Complaint: FALL, R arm pain and neck pain Time Seen by Provider: 03/31/20 16:23 History of Present Illness: HPI Narrative: The patient is an 84-year-old male from home who fell about an hour prior to arrival. He says he fell and hit the back of his head and landed on his side as well. He has an obvious deformity to his right proximal humerus. He was taken here by EMS who gave him 100 mics fentanyl intramuscular and his pain is adequately controlled and he is answering most questions appropriately. Place fall occurred: home Loss of consciousness: None Context: tripped/slipped and alcohol use Location of injury: head and neck Location of injury - extremities: Right: shoulder Severity: severe Severity scale (1-10): 10 Quality: sharp Associated symptoms-after fall: Reports neck pain; Denies abdominal pain, chest pain, confusion, difficulty walking or headache(s) Review of Systems General: Reports: 10 or more systems reviewed and unremarkable except in HPI and below Const: Denies: fatigue Eyes: Denies: change in vision, blurry vision or eye redness ENMT: Denies: throat pain, swelling of lips/tongue, ear or mastoid pain or nasal congestion Card: Denies: chest pain, palpitations, irregular heart rhythm, edema, dyspnea on exertion or orthopnea Resp: Denies: dyspnea, productive cough or non-productive cough GI: Denies: abdominal pain, diarrhea or GI cramping : Denies: flank pain, urinary frequency or urinary urgency Musc: Reports: neck pain and joint pain; Denies: back pain, extremity pain, joint redness, limited range of motion or muscle weakness Skin/Breast: Denies: rash, pruritus, erythema, skin pain or skin tenderness Neuro: Denies: headache(s), numbness in extremities, weakness in extremities, sensory changes, difficulty walking, dizziness, confusion or Slurred speech present Psych: Denies: anxiety or depression Endo: Denies: polyuria All/Imm: Denies: urticaria, throat swelling or tongue swelling PFSH ED PFSH: Medical History (Updated 03/31/20 @ 20:35 by Jb Can MD) Anticoagulation adequate with anticoagulant therapy Xarelto Arrhythmia Atrial fibrillation / flutter BPH (benign prostatic hyperplasia) Cardiomyopathy CHF (congestive heart failure) Cholecystectomy planned COPD (chronic obstructive pulmonary disease) CVA (cerebral vascular accident) Dyslipidemia HTN (hypertension) Memory loss Mild aortic stenosis Sick sinus syndrome Sleep apnea Surgical History (Updated 03/13/20 @ 15:24 by Garry Patel MD) History of appendectomy History of cataract surgery Bilateral History of cholecystectomy Open History of esophagogastroduodenoscopy (EGD) 01/2013 --gastritis, CLOtest negative History of umbilical hernia repair History of vasectomy Status cardiac pacemaker Social History (Updated 03/31/20 @ 16:34 by Wesly Mazariegos RN) Smoking and tobacco status: former smoker Alcohol intake: current Alcohol intake frequency: 0-2 Drinks per Day Alcohol type: beer Substance/Drug Use: never Physical Exam Const: COMMON NORMALS: no acute distress, average body habitus, patient oriented x3, no limitations, healthy appearing, alert and well nourished GENERAL APPEARANCE: cooperative, comfortable, well kempt and well developed ORIENTATION/CONSCIOUSNESS: Yes awake, Yes oriented to person, Yes oriented to place and Yes oriented to time OTHER: Mild confusion related to fentanyl HENMT: COMMON NORMALS: normocephalic, external ears normal and Normal external nose present HEAD & SCALP: normal to inspection and normocephalic NOSE: Normal external nose present EXTERNAL EAR: Yes external ears normal MOUTH: Normal oral and palatal mucosa present THROAT: posterior oropharynx normal Eye: COMMON NORMALS: Equal, round and reactive pupils present and EOMs intact bilaterally GENERAL EYE: appearance normal, both eyes and all related structures PUPIL: Yes Equal, round and reactive pupils present Neck/C-Spine: COMMON NORMALS: full ROM, no lymphadenopathy, no meningeal signs and no JVD GENERAL: Yes normal visual inspection Lymph: LYMPHATIC: no lymphadenopathy noted Chest: COMMONS NORMALS: normal inspection of the chest and normal palpation of entire chest wall Resp: COMMON NORMALS: normal respiratory effort, No retractions, No use of accessory muscles, clear to auscultation bilaterally and percussion normal EFFORT & INSPECTION: Yes able to speak in complete sentences AUSCULTATION: clear to auscultation bilaterally PERCUSSION: percussion normal Cardio: COMMON NORMALS: no JVD, regular rate, regular rhythm, S1 normal heart sound present, S2 normal heart sound present and Peripheral pulses 2+ throughout RATE: regular rate RHYTHM: regular rhythm HEART SOUNDS: S1 normal heart sound present and S2 normal heart sound present PERIPHERAL PULSES: Peripheral pulses 2+ throughout GI: COMMON NORMALS: Normal to inspection, nondistended, normoactive bowel sounds present, Soft to palpation, non-tender and no masses INSPECTION: Yes normal to inspection PALPATION: Yes Soft to palpation : COMMON NORMALS: Yes no CVA tenderness BLADDER/KIDNEY EXAM: Yes no CVA tenderness Back/Pelvis: COMMON NORMALS: no CVA tenderness, thoracic and lumbar spine normal to inspection, no thoracic nor lumbar tenderness and thoraco-lumbar ROM normal OTHER: Cervical spine perimuscular tenderness. He was placed in c-collar in the ER. Extremity: COMMON NORMALS: normal to inspection, full ROM, capillary refill normal, no joint enlargement and no pedal edema GENERAL: Yes normal exam except as noted OTHER: Obvious deformity of the right shoulder likely proximal humerus compound fracture Neuro: COMMON NORMALS: patient oriented x3, CN's II-XII intact bilaterally, moves all extremities, no focal motor deficits and no sensory deficits noted SENSORIUM/ORIENTATION: Yes alert, Yes oriented to person, Yes oriented to place and Yes oriented to time MENINGEAL SIGNS: Yes no meningeal signs Psych: COMMON NORMALS: mental status grossly normal, Normal thought process present, cooperative, normal affect and speech normal APPEARANCE: Yes well kempt ATTITUDE: Yes calm SPEECH: Yes normal speech THOUGHT PROCESS: Normal thought process present Skin: COMMON NORMALS: no rashes or lesions noted GENERAL SKIN EXAM: no rashes or lesions noted Course Vital Signs: Vital signs: Vital Signs Temperature 98.4 F 03/31/20 16:24 Pulse Rate 69 03/31/20 17:55 Respiratory Rate 16 03/31/20 18:15 Blood Pressure 132/74 03/31/20 17:55 Pulse Oximetry 99 03/31/20 17:55 MDM - Fall MDM Narrative: Medical decision making narrative: Discussed case with Dr. Estrada who recommends conservative therapy and following up as an outpatient in her clinic. Offered admission for pain control however the patient and declined preferring to take him home and treat the pain at home. Yumi will be placed in a sling and will be sent home with oxycodone for breakthrough pain. He takes a significant amount of oxycodone already chronically for his chronic pain. Discussed that he should stop his long-acting oxycodone and continue to take his short acting oxycodone only. He may take up to 3 pills in 124-hour period of the oxycodone I give him for breakthrough pain in between his other doses. He is not to take it before bed. I had a long extensive discussion with the patient and about the dangers of opiates and she says she can watch him very closely and has Narcan at home if needed. I recommended returning to the ER if the patient's pain is not controlled. Call pain management doctor Friday to discuss plan further. Lab Data: Labs: Lab Results 03/31/20 03/31/20 03/31/20 Range/Units 16:35 16:35 17:50 WBC Cancelled 5.5 Corrected WBC Cancelled RBC Cancelled 3.78 L Hgb Cancelled 12.2 Hct Cancelled 41.0 L MCV Cancelled 108.5 H MCH Cancelled 32.3 MCHC Cancelled 29.8 L RDW Cancelled 13.4 Plt Count Cancelled 174 MPV Cancelled 9.2 Gran % Cancelled Neut % (Auto) Cancelled 71.7 Lymph % (Auto) Cancelled 17.3 [place] % (Auto) Cancelled 7.7 Eos % (Auto) Cancelled 2.4 Baso % (Auto) Cancelled 0.7 Neut # (Auto) Cancelled 3.94 Lymph # (Auto) Cancelled 1.0 [place] # (Auto) Cancelled 0.4 Eos # (Auto) Cancelled 0.1 Baso # (Auto) Cancelled 0.0 Absolute Gran (aut o) Cancelled Nucleated RBC % (a uto) Cancelled 0 Nucleated RBCs # Cancelled 0.0 Sodium 143 (136-145) mmol/L Potassium 3.2 L (3.5-5.1) mmol/L Chloride 113 H (98-107) mmol/L Carbon Dioxide 22 (22-29) mmol/L Anion Gap 11.2 (5-19) BUN 7 L (8-23) mg/dL Creatinine 0.6 L (0.7-1.2) mg/dL GFR Calculation Not Reportable Glucose 88 (65-115) mg/dL Calculated Osmolal ity 293 (285-295) mOsm/k g Calcium 6.2 L (8.5-10.5) mg/dL Total Bilirubin 0.4 (0.15-1.2) mg/dL AST 19 (0-40) U/L ALT 7 (0-41) U/L Alkaline Phosphata se 61 (40-130) IU/L Total Protein 4.5 L (6.6-8.7) g/dL Albumin 2.8 L (3.5-5.2) g/dL Globulin 1.7 (1.3-4.6) g/dL Ethyl Alcohol 34 H (0-10) mg/dL Discharge Plan Discharge Patient Disposition: Home Clinical Impression: Fracture, humerus Qualifiers: Encounter type: initial encounter Humerus Location: surgical neck Fracture type: closed Fracture morphology: unspecified fracture morphology Fracture alignment: displaced Condition: Stable Prescriptions: New Percocet 5-325 mg tablet 1 tab PO Q8H PRN (Reason: pain) Qty: 14 RF: 0 No Action albuterol sulfate 90 mcg/actuation HFA aerosol inhaler 2 inh INHALATION Q6H PRN (Reason: shortness of breath or wheezing) Qty: 6.7 RF: 0 alprazolam [Xanax] 0.5 mg Tablet 0.25 - 0.5 mg PO BEDTIME@2200 PRN (Reason: Sleep) RF: 0 Narcan 4 mg/actuation [place],Non-Aerosol See Rx Instructions .ROUTE .COMPLEX RF: 0 multivitamin Tablet 1 tab PO DAILY@08 RF: 0 zinc 50 mg Tablet 50 mg PO DAILY@08 RF: 0 oxycodone 30 mg tablet 30 mg PO QID MDD 7 TABS PRN (Reason: Pain) RF: 0 Xtampza ER 27 mg cap,sprinkl,ER12hr(DONT CRUSH) 54 mg PO DAILY@1999 RF: 0 ondansetron HCl [Zofran] 4 mg tablet 4 mg PO BID PRN (Reason: Nausea And Vomiting) RF: 0 cholecalciferol (vitamin D3) [Vitamin D3] 25 mcg (1,000 unit) Capsule 25 mcg PO DAILY@08 RF: 0 carvedilol 25 mg tablet 25 mg PO BID@, RF: 0 Xarelto 20 mg tablet 20 mg PO DAILY@20 RF: 0 tamsulosin [Flomax] 0.4 mg Capsule 0.4 mg PO BID@, RF: 0 pantoprazole 40 mg Tablet,Delayed Release (Dr/Ec) 40 mg PO BID@, RF: 0 montelukast 10 mg Tablet 10 mg PO DAILY PRN (Reason: unknown) RF: 0 finasteride 5 mg Tablet 5 mg PO DAILY@08 RF: 0 Discharge Orders: Discharge ED (Routine); Ordered 03/31/20 Ordered By: Jb Can Referrals: Chencho Howell MD [Primary Care Provider] - Discharge Diet: Advance as tolerated Discharge Activity: Limit activity as instructed Patient Instructions: Fractures - Humerus Activity Restrictions/Additional Instructions: You have broken your humerus bone near the shoulder. I have discussed with Dr. Estrada and she recommended no surgical intervention acutely and that you follow-up with her in a week in the clinic. Please hold the long-acting oxycodone. I have prescribed you additional oxycodone to take in between your short acting oxycodone pills for breakthrough pain. Do not take more than 1 of these pills at a time. You may take 2-3 of them in between your other oxycodone pills for breakthrough pain only. Do not take them before bed do not mix with drugs, alcohol, nor operate machinery while using this medicine. Please call your pain management doctor Friday morning to further discuss this plan for your chronic pain. 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
[2020-03-31 16:32] VITALS: BP 125/78; PULSE 70; RESP 16; O2SAT 95
[2020-03-31 17:20] LABS: Total Bilirubin 0.4 mg/dL (0.15-1.2)
[2020-03-31 17:37] LABS: Alanine Aminotransferase 7 U/L (0-41); Albumin Level 2.8 g/dL (3.5-5.2); Alcohol Level 34 mg/dL (0-10); Alkaline Phosphatase 61 IU/L (40-130); Anion Gap 11.2 (5-19); Blood Urea Nitrogen 7 mg/dL (8-23); Calcium 6.2 mg/dL (8.5-10.5); Carbon Dioxide 22 mmol/L (22-29); Chloride 113 mmol/L (98-107); Globulin 1.7 g/dL (1.3-4.6); Glucose 88 mg/dL (65-115); Osmolality Calculated 293 mOsm/kg (285-295); Potassium 3.2 mmol/L (3.5-5.1); Sodium 143 mmol/L (136-145); Total Protein 4.5 g/dL (6.6-8.7)
[2020-03-31 17:38] LABS: Aspartate Amino Transferase 19 U/L (0-40)
[2020-03-31 17:52] VITALS: BP 125/78; PULSE 70; RESP 14; O2SAT 98
[2020-03-31 17:55] VITALS: BP 132/74; PULSE 69; RESP 16; O2SAT 99
[2020-03-31 17:58] LABS: Basophils % 0.7 %; Eosinophils # 0.1 10^3/uL (0.0-0.8); Eosinophils % 2.4 %; Hemoglobin 12.2 g/dL (11.7-16.6); Lymphocytes % 17.3 %; Mean Corpuscular HGB Conc 29.8 g/dL (30.0-36.0); Mean Corpuscular Hemoglobin 32.3 pg (28.0-34.0); Mean Corpuscular Volume 108.5 fL (80-94); Mean Platelet Volume 9.2 fL (7.4-10.4); Monocytes # 0.4 10^3/uL (0.2-0.9); Monocytes % 7.7 %; Neutrophils # 3.94 10^3/uL (1.8-7.7); Neutrophils % 71.7 %; Nucleated Red Blood Cells % 0 %; Platelet Count 174 10^3/cmm (130-400); Red Blood Count 3.78 10^6/uL (4.1-5.3); Red Cell Distribution Width 13.4 % (12.1-15.1); White Blood Count 5.5 10^3/uL (4.0-10.0)
[2020-03-31 18:15] VITALS: RESP 16
[2020-03-31] MEDS: HYDROmorphone 1 mg/mL INJ 1 mL 0.5 MG IVP (18:15)
[2020-03-31] MEDS: potassium chloride ER 20 mEq Tablet 40 MEQ PO (18:17)
--- NOTE | 2020-04-03 09:19 | DCPLANNER ---
environmental project manager had message to schedule a follow up appointment for patient with ortho. environmental project manager called the ortho clinic, spoke with Ashleigh, gave clinic patients information. environmental project manager was told that patients information would be printed and reviewed. Clinic will call patient with appointment information.
--- NOTE | 2020-04-04 07:42 | DCPLANNER ---
Patient has a follow up appointment scheduled for March at 11:[address] Santos at ortho. Clinic will call patient with appointment information.
--- NOTE | 2020-04-25 09:21 | DCPLANNER ---
Patient had a follow up appointment scheduled for 04.06.20 with ortho - patient did attend appointment.
== END 2020-03-31 21:22 | disposition home or self-care (01) ==
PROVIDERS: Emergency Provider Family Medicine; PCP Family Medicine
DX: S42.211A Unspecified displaced fracture of surgical neck of right humerus, initial encounter for closed fracture (principal); W19.XXXA Unspecified fall, initial encounter; I48.91 Unspecified atrial fibrillation; I11.0 Hypertensive heart disease with heart failure; I50.9 Heart failure, unspecified; J44.9 Chronic obstructive pulmonary disease, unspecified; Z86.73 Personal history of transient ischemic attack (TIA), and cerebral infarction without residual deficits; E78.5 Hyperlipidemia, unspecified; Z95.0 Presence of cardiac pacemaker; Z87.891 Personal history of nicotine dependence
CPT/HCPCS: 12345; 36415; 70450; 71045; 72125; 73030; 73060; 80053; 80307; 85025; 87635; 96374; 99282; 99283; J1170

== ENCOUNTER 2020-04-05 12:10 | Emergency (ER) | payer MEDICARE, SELFPAY ==
[2020-04-05 12:13] VITALS: PULSE 70; RESP 18; O2SAT 98; BMI 28.5
--- NOTE | 2020-04-05 12:21 | XR_ITS ---
WS: [id number] Right elbow, 3 views, 04/05/2020 Clinical Data: elbow pain Comparison: Right arm and humerus, 03/31/2020. Findings: No fractures or dislocations are seen. The radial head is normal. The soft tissues are unremarkable. There is an olecranon spur present. XR/XR elbow RT min 3V* [id number] Impression: Negative right elbow.
--- NOTE | 2020-04-05 12:21 | XR_ITS ---
WS: [id number] Right shoulder, 3 views, 04/05/2020 Clinical Data: fall shoulder pain Comparison: Right shoulder, 03/31/2020. Findings: The comminuted impacted fracture of the neck of the right humerus and of the right humeral head is se en. The right humeral head remains adjacent to the glenoid. The pacemaker generator remains in the right axilla. The right AC joint shows osteoarthritis. XR/XR shoulder RT min 2V* [id number] Impression: No change in comminuted impacted fracture of right humeral neck and head.
--- NOTE | 2020-04-05 12:22 | W.ED.FALL ---
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 consult/admission Do not use the right upper extremity until cleared by Dr. 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
[2020-04-05 12:25] VITALS: BP 146/83; PULSE 114; RESP 16; O2SAT 100
--- NOTE | 2020-04-05 12:31 | XR_ITS ---
WS: [id number] Portable AP upright chest, 04/05/2020 Clinical Data: syncope Comparison: Portable chest, 03/31/2020. Findings: No nodules, masses or effusions are seen. The heart is enlarged. The pulmonary vascularity is not increased. No pneumonia or pneumothorax is seen. The aortic arch and descending aorta show denice cification and tortuosity. The 2-lead pacemaker remains in good position. XR/XR chest 1V portable [id number] Impression: Atherosclerosis and cardiomegaly.
--- NOTE | 2020-04-05 12:32 | CT_ITS ---
WS: [id number] CT HEAD TECHNIQUE: Noncontrast CT of the head obtained from the skullbase to the vertex. CLINICAL INFORMATION: confused; AMS COMPARISON: CT March 31, 2020 DLP: 884.[address] scans at [facility] use at least one of these dose optimization techniques: automat ed exposure control; mA and/or kV adjustment per patient size (includes targeted exams where dose is matched to clinical indication); or iterative reconstruction. FINDINGS: No evidence of intracranial hemorrhage or mass effect. Ventricular system and basal cisterns are bautista nt. Moderate small vessel changes with moderate parenchymal volume loss. Chronic lacunar infarct righ t superior cerebellum. No extra-axial fluid collections. No evidence of mass or mass effect. Normal g ray-white differentiation. Paranasal sinuses and mastoid air cells are well aerated. .Normal visualized soft tissues. CT/CT head wo con* [id number] IMPRESSION: 1. No evidence of [id number] hemorrhage or mass effect. 2. Moderate small vessel changes. Moderate parenchymal volume loss. 3. No acute intracranial findings.
[2020-04-05] MEDS: HYDROcodone-acetaminophen 5-325 mg Tablet 1 TAB PO (12:42)
--- NOTE | 2020-04-05 13:13 | ECG_ITS ---
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 Measurements Intervals [place] Rate: 70 P: DC: QRS: -66 QRSD: 209 T: 111 QT: 471 QTc: 511 Interpretive Statements ELECTRONIC VENTRICULAR PACEMAKER Compared to ECG 03/13/2020 13:28:26 No significant changes Electronically Signed On 04-05-2020 19:17:34 IMMIGRATION GUARD by Margarita Al M.D. [id number]
[2020-04-05 13:14] LABS: Basophils % 0.5 %; Eosinophils # 0.2 10^3/uL (0.0-0.8); Eosinophils % 3.6 %; Hemoglobin 10.3 g/dL (11.7-16.6); Lymphocytes # 0.9 10^3/uL (0.8-4.8); Lymphocytes % 13.8 %; Mean Corpuscular HGB Conc 30.3 g/dL (30.0-36.0); Mean Corpuscular Hemoglobin 31.9 pg (28.0-34.0); Mean Corpuscular Volume 105.3 fL (80-94); Monocytes # 0.6 10^3/uL (0.2-0.9); Monocytes % 9.4 %; Neutrophils # 4.45 10^3/uL (1.8-7.7); Neutrophils % 72.4 %; Nucleated Red Blood Cells % 0 %; Platelet Count 186 10^3/cmm (130-400); Red Blood Count 3.23 10^6/uL (4.1-5.3); Red Cell Distribution Width 13.2 % (12.1-15.1); White Blood Count 6.2 10^3/uL (4.0-10.0)
--- NOTE | 2020-04-05 13:14 | CT_ITS ---
WS: [id number] CT CHEST, ABDOMEN, AND PELVIS TECHNIQUE: Noncontrast CT of the chest, abdomen, and pelvis with coronal and sagittal reformatted derrick ges. CLINICAL INFORMATION: fall, on anticoagulation COMPARISON: None. DLP: 2364.[address] scans at [facility] use at least one of these dose optimization techniques: automat ed exposure control; mA and/or kV adjustment per patient size (includes targeted exams where dose is matched to clinical indication); or iterative reconstruction. CT CHEST: Comminuted impacted fracture involving the right humeral head and neck. Normal glenoid. Soft tissue edema with joint effusion and hematoma. Aortic calcification. Coronary calcification. Lungs are well aerated. No acute pulmonary infiltrates. Slight atelectasis in the lung bases. Calcified granulomas left upper lobe. CT ABDOMEN AND PELVIS: Noncontrast liver is unremarkable. Normal GE junction. Fatty atrophy of the pancreas. Adrenal glands are normal. No hydronephrosis. Aortic calcification. Normal caliber abdominal aorta. No free fluid in the abdomen or pelvis. No evidence of high-grade small or large bowel obstruction. No intra-abdomina l fluid or hematoma. No free fluid in the pelvis. Hypertrophic changes thoracic spine. A few chronic bilateral rib fractures with callus formation. CT/CT chest abd pel wo con IMPRESSION: 1. Comminuted impacted fracture right humeral head and neck with surrounding h ematoma and soft tissue edema. 2. Otherwise no acute traumatic findings or hematoma in the chest abdomen or p johnathan.
[2020-04-05 13:31] LABS: Add Urine Microscopic? NO
[2020-04-05 13:37] LABS: Bilirubin Urine Neg (Negative); Blood Urine Neg (Negative); Glucose Urine UA Norm (Normal); Ketones Urine Negative (Negative); Leukocyte Esterase Urine Negative (Negative); Nitrate Urine Negative (Negative); Protein Urine Neg (Negative); Specific Gravity, Urine 1.015 (1.005-1.030); Urine Appearance Clear (CLEAR); Urine Color Yellow (Yellow); Urobilinogen Urine 1 mg/dL (Negative); pH Urine 5 (5-7)
[2020-04-05 13:42] LABS: Acetaminophen 9.8 ug/mL (10-30); Alanine Aminotransferase 13 U/L (0-41); Albumin Level 3.9 g/dL (3.5-5.2); Alkaline Phosphatase 108 IU/L (40-130); Anion Gap 11.2 (5-19); Aspartate Amino Transferase 26 U/L (0-40); Blood Urea Nitrogen 15 mg/dL (8-23); Calcium 9.5 mg/dL (8.5-10.5); Carbon Dioxide 33 mmol/L (22-29); Chloride 98 mmol/L (98-107); Globulin 2.8 g/dL (1.3-4.6); Glucose 134 mg/dL (65-115); Osmolality Calculated 289 mOsm/kg (285-295); Potassium 4.2 mmol/L (3.5-5.1); Sodium 138 mmol/L (136-145); Total Bilirubin 1.2 mg/dL (0.15-1.2); Total Protein 6.7 g/dL (6.6-8.7)
[2020-04-05 13:42] LABS: Amphetamines Screen Urine Negative (Negative); Barbiturates Screen Urine Negative (Negative); Benzodiazepines Screen Urine Positive (Negative); Cocaine Screen Urine Negative (Negative); Opiate Screen Urine Positive (Negative); PCP Screen Urine Negative (Negative); THC Screen Urine Positive (Negative)
[2020-04-05 13:44] LABS: Alcohol Level < 10 mg/dL (0-10); Salicylate < 0.3 mg/dL (3-10)
[2020-04-05 13:50] LABS: Creatine Phosphokinase 40 U/L (39-308)
[2020-04-05 14:11] LABS: Troponin(5th) Baseline 19 ng/L (0-15)
--- NOTE | 2020-04-05 15:13 | ECG_ITS ---
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 Measurements Intervals [place] Rate: 70 P: [place]: QRS: -70 QRSD: 212 T: 107 QT: 485 QTc: 525 Interpretive Statements ELECTRONIC VENTRICULAR PACEMAKER WITH PVC ABNORMAL RHYTHM ECG Compared to ECG 04/05/2020 13:23:14 No significant changes Electronically Signed On 04-05-2020 19:21:00 FIELD SALES EXECUTIVE by Margarita Al M.D. [email or web address] [email or web address] centerCultivate [id number]
[2020-04-05 15:56] LABS: NT Pro B Type Natriuretic Pept 3413 pg/mL (0-450)
[2020-04-05 16:15] LABS: Troponin 5 2HR 19.72 ng/L (0-15); Troponin 5 2HR Delta 0.72 ABS# (0-10)
[2020-04-05 17:24] VITALS: BP 130/70; PULSE 71; RESP 22; O2SAT 95
--- NOTE | 2020-04-06 10:01 | DCPLANNER ---
real estate leasing manager had message to speak with patient about a home health evaluation. real estate leasing manager called and spoke with patients . She stated that she is going to hold off on home health at this time. real estate leasing manager told the that if patient changes his mind that she can speak with patients primary care physician and that the primary care can order home health for the patient.
== END 2020-04-05 17:25 | disposition home or self-care (01) ==
PROVIDERS: Family Medicine; Emergency Provider Nurse Practitioner Family; PCP Family Medicine
DX: S42.292A Other displaced fracture of upper end of left humerus, initial encounter for closed fracture (principal); F11.20 Opioid dependence, uncomplicated; I48.91 Unspecified atrial fibrillation; I11.0 Hypertensive heart disease with heart failure; I50.9 Heart failure, unspecified; J44.9 Chronic obstructive pulmonary disease, unspecified; Z86.73 Personal history of transient ischemic attack (TIA), and cerebral infarction without residual deficits; E78.5 Hyperlipidemia, unspecified; Z95.0 Presence of cardiac pacemaker; Z87.891 Personal history of nicotine dependence; X58.XXXA Exposure to other specified factors, initial encounter
CPT/HCPCS: 12345; 70450; 71045; 71250; 73030; 73080; 74176; 80053; 80306; 80307; 81003; 82550; 83880; 84484; 85025; 93005; 99283; 99284

== ENCOUNTER → 2020-04-26 13:58 | Outpatient (BNVA) | payer MEDICARE, SELFPAY | PROVIDERS: PCP Family Medicine; Visit Provider Specialist | DX: S42.211A Unspecified displaced fracture of surgical neck of right humerus, initial encounter for closed fracture (principal) | CPT/HCPCS: 73030; 73060 ==

== ENCOUNTER → 2020-06-05 16:32 | Outpatient (BNVA) | payer MEDICARE, SELFPAY | PROVIDERS: PCP Family Medicine; Visit Provider Specialist | DX: S42.211D Unspecified displaced fracture of surgical neck of right humerus, subsequent encounter for fracture with routine healing (principal); W19.XXXD Unspecified fall, subsequent encounter | CPT/HCPCS: 73030 ==

== ENCOUNTER 2020-06-17 20:57 | Emergency (ER) | payer MEDICARE, SELFPAY ==
[2020-06-17 21:04] VITALS: BP 150/79; PULSE 83; RESP 18; TEMP 36.6; O2SAT 93; BMI 27.1
[2020-06-17 21:12] VITALS: BP 150/79; PULSE 75; RESP 15; O2SAT 92
--- NOTE | 2020-06-17 21:18 | XRR_ITS ---
PROCEDURE INFORMATION: Exam: XR Left Humerus Exam date and time: 06/17/2020 9:38 PM Age: 84 years old Clinical indication: Injury or trauma; Fall; Blunt trauma (contusions or hematomas); Arm, upper; Left TECHNIQUE: Imaging protocol: XR Left humerus. Views: 2 or more views. COMPARISON: No relevant prior studies available. FINDINGS: Bones/joints: Minimally displaced, mildly comminuted acute fracture through the neck of the humerus. XR/[place] [id number] IMPRESSION: Minimally displaced, mildly comminuted acute fracture through the neck of the humerus.
--- NOTE | 2020-06-17 21:32 | XRR_ITS ---
PROCEDURE INFORMATION: Exam: XR Chest Exam date and time: 06/17/2020 9:40 PM Age: 84 years old Clinical indication: Pre-operative exam; Cardiovascular screening and respiratory screening exam; Patient HX: Humeral FX; Additional info: Fall TECHNIQUE: Imaging protocol: XR of the chest Views: 1 view. COMPARISON: CT chest abd pel wo con 04/05/2020 1:42 PM; XR humerus 04/26/2020 FINDINGS: Tubes, catheters and devices: Pacemaker. Lungs: Unremarkable. No consolidation. Pleural spaces: Unremarkable. No pleural effusion. No pneumothorax. Heart/Mediastinum: Mild cardiomegaly. Bones/joints: Subacute/chronic minimally displaced fracture of the proximal right humerus. XR/XR chest 1V portable [id number] IMPRESSION: Subacute/chronic minimally displaced fracture of the proximal right humerus.
[2020-06-17] MEDS: ondansetron 2 mg/ML SDV 2 mL 4 MG IVP (21:41)
[2020-06-17 21:42] VITALS: RESP 17; O2SAT 95
[2020-06-17] MEDS: morphine 4 mg/mL SDV 1 mL IVP ×2 (21:42→22:09)
[2020-06-17 22:09] VITALS: BP 134/78; PULSE 68; RESP 15; RESP 21; O2SAT 95
--- NOTE | 2020-06-17 22:28 | ED_ITS ---
HPI - Fall General: Chief Complaint: Fall Stated Complaint: FALL - ARM PAIN Time Seen by Provider: 06/17/20 21:02 History of Present Illness: HPI Narrative: 84-year-old male who fell at home today. He injured his left arm. He states he cannot move it. He received 50 mcg of fentanyl in the ambulance on the way here. He still having pain. complaint: fall Onset (ago): minute(s) Fall from: standing Fall witnessed: yes, by family Place fall occurred: home Loss of consciousness: None Prolonged down time: no Symptoms prior to fall: none Context: tripped/slipped Location of injury - extremities: Left: shoulder and arm Severity: moderate Quality: stabbing and aching Associated symptoms-after fall: Denies abdominal pain, chest pain, headache(s) or lightheadedness Review of Systems Const: Denies: fever(s) or chills Card: Denies: chest pain or lightheadedness Resp: Denies: dyspnea or productive cough GI: Denies: abdominal pain Neuro: Denies: headache(s) PFSH ED PFSH: Medical History Anticoagulation adequate with anticoagulant therapy Xarelto Arrhythmia Atrial fibrillation / flutter BPH (benign prostatic hyperplasia) Cardiomyopathy CHF (congestive heart failure) Cholecystectomy planned COPD (chronic obstructive pulmonary disease) CVA (cerebral vascular accident) Dyslipidemia HTN (hypertension) Memory loss Mild aortic stenosis Sick sinus syndrome Sleep apnea Surgical History History of appendectomy History of cataract surgery Bilateral History of cholecystectomy Open History of esophagogastroduodenoscopy (EGD) 01/2013 --gastritis, CLOtest negative History of umbilical hernia repair History of vasectomy Status cardiac pacemaker Social History Smoking and tobacco status: former smoker Alcohol intake: current Alcohol intake frequency: 0-2 Drinks per Day Alcohol type: beer Physical Exam Const: COMMON NORMALS: alert GENERAL APPEARANCE: cooperative ORIENTATION/CONSCIOUSNESS: Yes awake, Yes oriented to person and Yes oriented to place; not oriented to time Chest: COMMONS NORMALS: normal inspection of the chest Resp: COMMON NORMALS: normal respiratory effort, No use of accessory muscles and clear to auscultation bilaterally AUSCULTATION: clear to auscultation bilaterally Cardio: COMMON NORMALS: regular rate and regular rhythm RATE: regular rate RHYTHM: regular rhythm GI: COMMON NORMALS: Normal to inspection, nondistended, normoactive bowel sounds present, Soft to palpation and non-tender PALPATION: Yes Soft to palpation Extremity: NARRATIVE EXTREMITY EXAM: Exam of the left upper extremity reveals pain and tenderness on palpation from the mid humerus proximally. There is soft tissue swelling over the deltoid. No definite deformity or step-off. There is a small skin tear on the elbow. Sensation is intact distally. Wrist extension is intact on muscle testing. Neuro: SENSORIUM/ORIENTATION: Yes alert, Yes oriented to person, Yes oriented to place and No oriented to time Course Vital Signs: Vital signs: Vital Signs Temperature 97.8 F 06/17/20 21:04 Pulse Rate 68 06/17/20 22:09 Respiratory Rate 15 06/17/20 22:09 Blood Pressure 134/78 06/17/20 22:09 Pulse Oximetry 95 06/17/20 22:09 MDM - Fall MDM Narrative: Medical decision making narrative: X-ray of the left humerus reveals a surgical neck fracture that is nondisplaced. Shoulder is in joint. Clavicle is intact distally. Chest x-ray appears negative. 1 can see the prior right shoulder surgical neck fracture on chest x-ray. He will be placed in a shoulder immobilizer and asked to follow-up with orthopedics. Discharge Plan Discharge Patient Disposition: Home Clinical Impression: Closed fracture of surgical neck of left humerus Qualifiers: Encounter type: initial encounter Fracture morphology: unspecified fracture morphology Fracture alignment: nondisplaced Qualified Code(s): S42.215A - Unspecified nondisplaced fracture of surgical neck of left humerus, initial encounter for closed fracture Condition: Stable Prescriptions: No Action oxycodone-acetaminophen [Percocet] 10-325 mg tablet 1 tab PO Q6H PRNRF: 0 trazodone 50 mg tablet 25 mg PO DAILY RF: 0 olanzapine [Zyprexa Zydis] 10 mg tablet,disintegrating 10 mg PO DAILY RF: 0 rivaroxaban [Xarelto] 20 mg tablet See Rx Instructions .ROUTE .COMPLEX Qty: 90 RF: 3 albuterol sulfate 90 mcg/actuation HFA aerosol inhaler 2 inh INHALATION Q6H PRN (Reason: shortness of breath or wheezing) Qty: 6.7 RF: 0 Narcan 4 mg/actuation [place],Non-Aerosol See Rx Instructions .ROUTE .COMPLEX RF: 0 multivitamin Tablet 1 tab PO DAILY@08 RF: 0 zinc 50 mg Tablet 50 mg PO DAILY@08 RF: 0 ondansetron HCl [Zofran] 4 mg tablet 4 mg PO BID PRN (Reason: Nausea And Vomiting) RF: 0 cholecalciferol (vitamin D3) [Vitamin D3] 25 mcg (1,000 unit) Capsule 25 mcg PO DAILY@08 RF: 0 carvedilol 25 mg tablet 25 mg PO BID@08,20 RF: 0 tamsulosin [Flomax] 0.4 mg Capsule 0.4 mg PO BID@,20 RF: 0 pantoprazole 40 mg Tablet,Delayed Release (Dr/Ec) 40 mg PO BID@, RF: 0 montelukast 10 mg Tablet 10 mg PO DAILY PRN (Reason: unknown) RF: 0 finasteride 5 mg Tablet 5 mg PO DAILY@08 RF: 0 Discharge Orders: Discharge ED (Routine); Ordered 06/17/20 Ordered By: Ganga Vargas Referrals: Tad Louise DO [Physician] - 4-7 days Chencho Howell MD [Primary Care Provider] - Patient Instructions: Arm Fracture in Adults (ED), Opioid Safety Activity Restrictions/Additional Instructions: Stay in shoulder immobilizer until seen by orthopedics. Call Friday morning for an appointment. Ice will help with pain. Pain medication as directed. Return for any problems. Return specifically for mental status changes, headache, worsening pain to the shoulder despite treatment, etc. 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
[2020-06-17] MEDS: oxyCODONE-APAP 5-325 mg Tablet 2 TAB PO (23:04)
[2020-06-17 23:07] VITALS: BP 132/73; PULSE 73; RESP 20; TEMP 36.6; O2SAT 95
== END 2020-06-17 23:13 | disposition home or self-care (01) ==
PROVIDERS: Emergency Provider Emergency Medicine; PCP Family Medicine
DX: S42.215A Unspecified nondisplaced fracture of surgical neck of left humerus, initial encounter for closed fracture (principal); I48.91 Unspecified atrial fibrillation; I11.0 Hypertensive heart disease with heart failure; I50.9 Heart failure, unspecified; J44.9 Chronic obstructive pulmonary disease, unspecified; Z86.73 Personal history of transient ischemic attack (TIA), and cerebral infarction without residual deficits; E78.5 Hyperlipidemia, unspecified; Z87.891 Personal history of nicotine dependence; W19.XXXA Unspecified fall, initial encounter
CPT/HCPCS: 29240; 71045; 73060; 99283; J2270; J2405

== ENCOUNTER → 2020-06-21 13:29 | Outpatient (BNVA) | payer MEDICARE, SELFPAY | PROVIDERS: PCP Family Medicine; Referring Provider Emergency Medicine; Visit Provider Specialist | DX: S42.215A Unspecified nondisplaced fracture of surgical neck of left humerus, initial encounter for closed fracture (principal); X58.XXXA Exposure to other specified factors, initial encounter | CPT/HCPCS: 73030 ==

== ENCOUNTER → 2020-07-12 13:27 | Outpatient (BNVA) | payer MEDICARE, SELFPAY | PROVIDERS: PCP Family Medicine; Visit Provider Specialist | DX: S42.215A Unspecified nondisplaced fracture of surgical neck of left humerus, initial encounter for closed fracture (principal); M25.512 Pain in left shoulder; X58.XXXA Exposure to other specified factors, initial encounter | CPT/HCPCS: 73030 ==

== ENCOUNTER → 2020-10-13 10:19 | Outpatient (BNVA) | payer MEDICARE, SELFPAY | PROVIDERS: PCP Family Medicine; Visit Provider Surgery | DX: Z01.812 Encounter for preprocedural laboratory examination (principal); Z20.822 Contact with and (suspected) exposure to COVID-19 | CPT/HCPCS: 87635 ==

== ENCOUNTER 2020-10-19 06:57 | Day surgery (SDC) | payer MEDICARE, SELFPAY ==
[2020-10-17 08:20] VITALS: BMI 27.1
[2020-10-19 07:26] VITALS: BP 161/92; PULSE 75; RESP 18; TEMP 36.4; O2SAT 95
[2020-10-19] MEDS: sodium chloride 0.9% 1,000 ML 30 ML IV (07:41)
--- NOTE | 2020-10-19 07:44 | ANES.PREANE2 ---
Pre-Anesthetic Assessment Pre-Anesthetic Assessment: Height/Weight: Height 1.83 m Weight 90.718 kg Temp Pulse Resp BP Pulse Ox 97.5 F L 75 18 161/92 95 10/19/20 07:26 10/19/20 07:26 10/19/20 07:26 10/19/20 07:26 10/19/20 07:26 Preop Diagnosis: chronic n/v Proposed Procedure: Operation Date: 10/19/20 08:00 Proposed Procedures p EGD 73918 R11.2 R93.3 Z87.19 Z51.81(Not Applicable) - Garry Patel MD Was Beta Peyton taken within 24 hours: Yes Was Clonidine taken within 24 hours: N/A Last intake: Intake Last Liquid Date 10/18/20 Last Liquid Time 22:00 Last Solid Date 10/18/20 Last Solid Time 19:30 Social: Social History: Alcohol (daily) and No tobacco Exam: Pre-Anes Outpt Exam: alert, oriented x 3, clear to auscultation bilaterally and regular rate & rhythm Airway: Submandibular: WNL Cervical ROM: WNL Dentition: False History/ROS: No significant history except as noted Pulmonary: Pulmonary: COPD, Sleep apnea (2L O2) and SOB CV/HEM: CV/HEM: Angina (Stable), Arrythmia, CHF and HTN Comments: EF 37% : : None reported Hepatic: Comments: history of pancreatitis GI: GI: GERD Musc/skel: Musc/skel: Lower Back Pain and Weakness Neuropsych: Neuropsych: Anxiety and CVA Anesthetic Plan: ASA status: 3 Anesthesia: Anesthesia Evaluation and MAC Risk of > 500 ml blood loss (7ml/kg in children): No Meds/Allergies Current Medications: Current Medications Generic Name Dose Route Start Last Admin Trade Name Freq PRN Reason Stop Dose Admin Sodium Chloride 1,000 mls @ 30 ml s/hr 10/19/20 07:30 10/19/20 07:41 Sodium Chloride 0.9% IV 10/20/20 07:29 30 mls/hr .Q24H RENY Administration PFSH Anesthesia PFSH: Medical History Anticoagulation adequate with anticoagulant therapy Xarelto Arrhythmia Atrial fibrillation / flutter BPH (benign prostatic hyperplasia) Cardiomyopathy CHF (congestive heart failure) Cholecystectomy planned COPD (chronic obstructive pulmonary disease) CVA (cerebral vascular accident) Dyslipidemia HTN (hypertension) Memory loss Mild aortic stenosis Sick sinus syndrome Sleep apnea Surgical History History of appendectomy History of cataract surgery Bilateral History of cholecystectomy Open History of esophagogastroduodenoscopy (EGD) 01/2013 --gastritis, CLOtest negative History of umbilical hernia repair History of vasectomy Status cardiac pacemaker Social History Smoking and tobacco status: former smoker Alcohol intake: current Alcohol intake frequency: 0-2 Drinks per Day Alcohol type: beer Data Anesthesia Cardiac Studies: No Data to Display
--- NOTE | 2020-10-19 08:00 | W.PM.OPSUD ---
Surgery/Procedure H&P Update DATE OF PROCEDURE: October 19, 2020 DATE H&P PERFORMED: 10/10/20 H&P UPDATE INFORMATION: No changes to prior documentation PREOP DIAGNOSIS: chronic n/v, abnormal CT PLANNED PROCEDURE: Operation Date: 10/19/20 08:00 Proposed Procedures p EGD 43866 R11.2 R93.3 Z87.19 Z51.81(Not Applicable) - Garry Patel MD
[2020-10-19 08:15] VITALS: BP 152/97; PULSE 69; RESP 18; TEMP 36.2; O2SAT 99
--- NOTE | 2020-10-19 14:59 | ANE.PACU2 ---
Inpatient post-anesthesia follow up: Airway intact: Yes Vital signs: Temperature 97.2 F Pulse Rate 69 Respiratory Rate 18 Blood Pressure 152/97 Pulse Oximetry 99 Oxygen Delivery Me thod Room Air Oxygen Flow Rate Fraction of Inspir ed Oxygen Hydration adequate: Yes Nausea and vomiting: No Pain level: 1 Mental status: Baseline
[2020-10-20 06:04] LABS: H. Pylori / CLO Test Negative
== END 2020-10-19 08:50 | disposition home or self-care (01) ==
PROVIDERS: PCP Family Medicine; Visit Provider Surgery
PROC: 0DJ08ZZ Inspection of Upper Intestinal Tract, Via Natural or Artificial Opening Endoscopic (ICD-10-PCS; CPT 43235; principal; 2020-10-19 08:00)
DX: K29.70 Gastritis, unspecified, without bleeding (principal); R11.2 Nausea with vomiting, unspecified; R93.3 Abnormal findings on diagnostic imaging of other parts of digestive tract; Z87.19 Personal history of other diseases of the digestive system; Z51.81 Encounter for therapeutic drug level monitoring; J44.9 Chronic obstructive pulmonary disease, unspecified; G47.30 Sleep apnea, unspecified; Z99.81 Dependence on supplemental oxygen; K21.9 Gastro-esophageal reflux disease without esophagitis; F41.9 Anxiety disorder, unspecified; Z86.73 Personal history of transient ischemic attack (TIA), and cerebral infarction without residual deficits; Z79.01 Long term (current) use of anticoagulants; I48.91 Unspecified atrial fibrillation; I11.0 Hypertensive heart disease with heart failure; I50.9 Heart failure, unspecified; N40.0 Benign prostatic hyperplasia without lower urinary tract symptoms; Z87.891 Personal history of nicotine dependence
CPT/HCPCS: 43239; 87077; 96360; J2704; J7030